=== PATIENT | female | born 1985 | race Caucasian/White ===

== ENCOUNTER 2017-03-01 15:42 | Inpatient (IN) | payer MEDICAID ==
--- NOTE | 2017-03-01 16:22 | Emergency Department Report ---
ED Altered Mental Status HPI - General Chief Complaint: Altered Mental Status Stated Complaint: SEMI RESPONSIVE Time Seen by Provider: 03/01/17 16:21 Source: EMS Mode of arrival: Stretcher Limitations: Altered Mental Status - History of Present Illness Initial Comments: 41-year-old female presents to the emergency department via EMS after being found unresponsive in a hotel room. No further history is able to be obtained from the patient due to her current clinical condition. EMS is also unable to provide any other history. MD Complaint: altered mental status -: unknown Severity: severe Consistency of Symptoms: constant Context: unknown ED Review of Systems ROS: Stated complaint: SEMI RESPONSIVE Other details as noted in HPI Comment: Unobtainable due to pts medical conditions ED Past Medical Hx - Past Medical History Previous Medical History?: Yes Hx Diabetes: Yes - Surgical History Past Surgical History?: No - Social History Smoking Status: Unknown if ever smoked ED Physical Exam - General Limitations: Altered Mental Status General appearance: in no apparent distress, lethargic - Head Head exam: Present: atraumatic, normocephalic - Eye Eye exam: Present: normal appearance, PERRL, EOMI - ENT ENT exam: Present: normal exam, normal orophraynx, mucous membranes dry - Neck Neck exam: Present: normal inspection, full ROM. Absent: tenderness - Respiratory Respiratory exam: Present: normal lung sounds bilaterally. Absent: respiratory distress - Cardiovascular Cardiovascular Exam: Present: normal rhythm, tachycardia, normal heart sounds - GI/Abdominal GI/Abdominal exam: Present: soft, normal bowel sounds. Absent: distended, tenderness - Extremities Exam Extremities exam: Present: normal inspection, full ROM. Absent: tenderness - Back Exam Back exam: Present: normal inspection, full ROM. Absent: tenderness - Neurological Exam Neurological exam: Present: altered. Absent: motor sensory deficit - Skin Skin exam: Present: warm, dry, intact ED Course Vital Signs 03/01/17 03/01/17 03/01/17 16:05 16:50 17:18 Temperature 91.8 F L Pulse Rate 112 H Respiratory 21 16 Rate Blood Pressure 123/76 [Left] O2 Sat by Pulse 100 100 Oximetry - Reevaluation(s) Reevaluation #1: 03/01/17 17:08 A family member has arrived and reports the patient has a history of "sugar diabetes". He states that the patient has been breathing heavily. It is unknown the time frame of symptom onset. - Lab Data Result diagrams: 03/01/17 16:44 03/01/17 16:44 Lab Results 03/01/17 03/01/17 03/01/17 Range/Units 16:20 16:44 16:44 WBC 41.2 H* (4.5-11.0) K/mm3 RBC 5.81 H (3.65-5.03) M/mm3 Hgb 16.6 H (10.1-14.3) gm/dl Hct 62.0 H* (30.3-42.9) % MCV 107 H (79-97) fl MCH 29 (28-32) pg MCHC 27 L (30-34) % RDW 15.7 H (13.2-15.2) % Plt Count 424 (140-440) K/mm3 Add Manual Diff Complete Total Counted 200 Seg Neuts % (Manual) 87.0 H (40.0-70.0) % Band Neutrophils % 0 % Lymphocytes % (Manual) 6.5 L (13.4-35.0) % Reactive Lymphs % (Man) 0 % Monocytes % (Manual) 5.5 (0.0-7.3) % Eosinophils % (Manual) 0 (0.0-4.3) % Basophils % (Manual) 0 (0.0-1.8) % Metamyelocytes % 0.5 % Myelocytes % 0.5 % Promyelocytes % 0 % Blast Cells % 0 % Nucleated RBC % Not Reportable Seg Neutrophils # Man 35.8 H (1.8-7.7) K/mm3 Band Neutrophils # 0.0 K/mm3 Lymphocytes # (Manual) 2.7 (1.2-5.4) K/mm3 Abs React Lymphs (Man) 0.0 K/mm3 Monocytes # (Manual) 2.3 H (0.0-0.8) K/mm3 Eosinophils # (Manual) 0.0 (0.0-0.4) K/mm3 Basophils # (Manual) 0.0 (0.0-0.1) K/mm3 Metamyelocytes # 0.2 K/mm3 Myelocytes # 0.2 K/mm3 Promyelocytes # 0.0 K/mm3 Blast Cells # 0.0 K/mm3 WBC Morphology Not Reportable Hypersegmented Neuts Not Reportable Hyposegmented Neuts Not Reportable Hypogranular Neuts Not Reportable Smudge Cells Not Reportable Toxic Granulation Not Reportable Toxic Vacuolation Not Reportable Dohle Bodies Not Reportable Pelger-Huet Anomaly Not Reportable Chad Rods Not Reportable Platelet Estimate Consistent w auto Clumped Platelets Not Reportable Plt Clumps, EDTA Not Reportable Large Platelets Few Giant Platelets Not Reportable Platelet Satelliting Not Reportable Plt Morphology Comment Not Reportable RBC Morphology Not Reportable Dimorphic RBCs Not Reportable Polychromasia Not Reportable Hypochromasia Not Reportable Poikilocytosis Few Anisocytosis 1+ Microcytosis Not Reportable Macrocytosis Not Reportable Spherocytes Not Reportable Pappenheimer Bodies Not Reportable Sickle Cells Not Reportable Target Cells Not Reportable Tear Drop Cells Not Reportable Ovalocytes Not Reportable Helmet Cells Not Reportable [place] Bodies Not Reportable [place] Rings Not Reportable [place] Cells Not Reportable Bite Cells Not Reportable Crenated Cell Not Reportable Elliptocytes Not Reportable Acanthocytes (Spur) Not Reportable Rouleaux Not Reportable Hemoglobin C Crystals Not Reportable Schistocytes Not Reportable Malaria parasites Not Reportable Enoc Bodies Not Reportable Hem Pathologist Commnt No PT 15.4 H (12.2-14.9) Sec. INR 1.16 H (0.87-1.13) APTT 31.8 (24.2-36.6) Sec. Sodium (137-145) mmol/L Potassium (3.6-5.0) mmol/L Chloride (98-107) mmol/L Carbon Dioxide (22-30) mmol/L Anion Gap mmol/L BUN (7-17) mg/dL Creatinine (0.7-1.2) mg/dL Estimated GFR ml/min BUN/Creatinine Ratio % Glucose (65-100) mg/dL POC Glucose > 500 H (70-105) Lactic Acid (0.7-2.0) mmol/L Calcium (8.4-10.2) mg/dL Phosphorus (2.5-4.5) mg/dL Magnesium (1.7-2.3) mg/dL Total Bilirubin (0.1-1.2) mg/dL AST (5-40) units/L ALT (7-56) units/L Alkaline Phosphatase (35-129) units/L Ammonia (25-60) umol/L Total Creatine Kinase (30-135) units/L Troponin T (0.00-0.029) ng/mL Total Protein (6.3-8.2) g/dL Albumin (3.9-5) g/dL Albumin/Globulin Ratio % TSH (0.270-4.200) mlU/mL Salicylates (2.8-20.0) mg/dL Urine Opiates Screen Urine Methadone Screen Acetaminophen (10.0-30.0) ug/mL Ur Barbiturates Screen Ur Phencyclidine Scrn U Benzodiazepines Scrn Urine Cocaine Screen U Marijuana (THC) Screen Plasma/Serum Alcohol (0-0.07) gm% 03/01/17 03/01/17 03/01/17 Range/Units 16:44 16:44 16:44 WBC (4.5-11.0) K/mm3 RBC (3.65-5.03) M/mm3 Hgb (10.1-14.3) gm/dl Hct (30.3-42.9) % MCV (79-97) fl MCH (28-32) pg MCHC (30-34) % RDW (13.2-15.2) % Plt Count (140-440) K/mm3 Add Manual Diff Total Counted Seg Neuts % (Manual) (40.0-70.0) % Band Neutrophils % % Lymphocytes % (Manual) (13.4-35.0) % Reactive Lymphs % (Man) % Monocytes % (Manual) (0.0-7.3) % Eosinophils % (Manual) (0.0-4.3) % Basophils % (Manual) (0.0-1.8) % Metamyelocytes % % Myelocytes % % Promyelocytes % % Blast Cells % % Nucleated RBC % Seg Neutrophils # Man (1.8-7.7) K/mm3 Band Neutrophils # K/mm3 Lymphocytes # (Manual) (1.2-5.4) K/mm3 Abs React Lymphs (Man) K/mm3 Monocytes # (Manual) (0.0-0.8) K/mm3 Eosinophils # (Manual) (0.0-0.4) K/mm3 Basophils # (Manual) (0.0-0.1) K/mm3 Metamyelocytes # K/mm3 Myelocytes # K/mm3 Promyelocytes # K/mm3 Blast Cells # K/mm3 WBC Morphology Hypersegmented Neuts Hyposegmented Neuts Hypogranular Neuts Smudge Cells Toxic Granulation Toxic Vacuolation Dohle Bodies Pelger-Huet Anomaly Chad Rods Platelet Estimate Clumped Platelets Plt Clumps, EDTA Large Platelets Giant Platelets Platelet Satelliting Plt Morphology Comment RBC Morphology Dimorphic RBCs Polychromasia Hypochromasia Poikilocytosis Anisocytosis Microcytosis Macrocytosis Spherocytes Pappenheimer Bodies Sickle Cells Target Cells Tear Drop Cells Ovalocytes Helmet Cells [place] Bodies [place] Rings [place] Cells Bite Cells Crenated Cell Elliptocytes Acanthocytes (Spur) Rouleaux Hemoglobin C Crystals Schistocytes Malaria parasites Enoc Bodies Hem Pathologist Commnt PT (12.2-14.9) Sec. INR (0.87-1.13) APTT (24.2-36.6) Sec. Sodium 124 L (137-145) mmol/L Potassium 5.7 H (3.6-5.0) mmol/L Chloride 79.2 L (98-107) mmol/L Carbon Dioxide < 2.0 L* (22-30) mmol/L Anion Gap 49 mmol/L BUN 49 H (7-17) mg/dL Creatinine 2.5 H (0.7-1.2) mg/dL Estimated GFR 21 ml/min BUN/Creatinine Ratio 19.60 % Glucose 1379 H* (65-100) mg/dL POC Glucose (70-105) Lactic Acid 2.60 H* (0.7-2.0) mmol/L Calcium 9.0 (8.4-10.2) mg/dL Phosphorus (2.5-4.5) mg/dL Magnesium (1.7-2.3) mg/dL Total Bilirubin 0.20 (0.1-1.2) mg/dL AST 14 (5-40) units/L ALT 10 (7-56) units/L Alkaline Phosphatase 199 H (35-129) units/L Ammonia 71.0 H (25-60) umol/L Total Creatine Kinase 47 (30-135) units/L Troponin T < 0.010 (0.00-0.029) ng/mL Total Protein 8.1 (6.3-8.2) g/dL Albumin 3.9 (3.9-5) g/dL Albumin/Globulin Ratio 0.9 % TSH (0.270-4.200) mlU/mL Salicylates (2.8-20.0) mg/dL Urine Opiates Screen Urine Methadone Screen Acetaminophen (10.0-30.0) ug/mL Ur Barbiturates Screen Ur Phencyclidine Scrn U Benzodiazepines Scrn Urine Cocaine Screen U Marijuana (THC) Screen Plasma/Serum Alcohol (0-0.07) gm% 03/01/17 03/01/17 03/01/17 Range/Units 16:44 16:44 16:44 WBC (4.5-11.0) K/mm3 RBC (3.65-5.03) M/mm3 Hgb (10.1-14.3) gm/dl Hct (30.3-42.9) % MCV (79-97) fl MCH (28-32) pg MCHC (30-34) % RDW (13.2-15.2) % Plt Count (140-440) K/mm3 Add Manual Diff Total Counted Seg Neuts % (Manual) (40.0-70.0) % Band Neutrophils % % Lymphocytes % (Manual) (13.4-35.0) % Reactive Lymphs % (Man) % Monocytes % (Manual) (0.0-7.3) % Eosinophils % (Manual) (0.0-4.3) % Basophils % (Manual) (0.0-1.8) % Metamyelocytes % % Myelocytes % % Promyelocytes % % Blast Cells % % Nucleated RBC % Seg Neutrophils # Man (1.8-7.7) K/mm3 Band Neutrophils # K/mm3 Lymphocytes # (Manual) (1.2-5.4) K/mm3 Abs React Lymphs (Man) K/mm3 Monocytes # (Manual) (0.0-0.8) K/mm3 Eosinophils # (Manual) (0.0-0.4) K/mm3 Basophils # (Manual) (0.0-0.1) K/mm3 Metamyelocytes # K/mm3 Myelocytes # K/mm3 Promyelocytes # K/mm3 Blast Cells # K/mm3 WBC Morphology Hypersegmented Neuts Hyposegmented Neuts Hypogranular Neuts Smudge Cells Toxic Granulation Toxic Vacuolation Dohle Bodies Pelger-Huet Anomaly Chad Rods Platelet Estimate Clumped Platelets Plt Clumps, EDTA Large Platelets Giant Platelets Platelet Satelliting Plt Morphology Comment RBC Morphology Dimorphic RBCs Polychromasia Hypochromasia Poikilocytosis Anisocytosis Microcytosis Macrocytosis Spherocytes Pappenheimer Bodies Sickle Cells Target Cells Tear Drop Cells Ovalocytes Helmet Cells [place]rab[place] Bodies [place] Rings [place] Cells Bite Cells Crenated Cell Elliptocytes Acanthocytes (Spur) Rouleaux Hemoglobin C Crystals Schistocytes Malaria parasites Enoc Bodies Hem Pathologist Commnt PT (12.2-14.9) Sec. INR (0.87-1.13) APTT (24.2-36.6) Sec. Sodium (137-145) mmol/L Potassium (3.6-5.0) mmol/L Chloride (98-107) mmol/L Carbon Dioxide (22-30) mmol/L Anion Gap mmol/L BUN (7-17) mg/dL Creatinine (0.7-1.2) mg/dL Estimated GFR ml/min BUN/Creatinine Ratio % Glucose (65-100) mg/dL POC Glucose (70-105) Lactic Acid (0.7-2.0) mmol/L Calcium (8.4-10.2) mg/dL Phosphorus (2.5-4.5) mg/dL Magnesium (1.7-2.3) mg/dL Total Bilirubin (0.1-1.2) mg/dL AST (5-40) units/L ALT (7-56) units/L Alkaline Phosphatase (35-129) units/L Ammonia (25-60) umol/L Total Creatine Kinase (30-135) units/L Troponin T (0.00-0.029) ng/mL Total Protein (6.3-8.2) g/dL Albumin (3.9-5) g/dL Albumin/Globulin Ratio % TSH 1.510 (0.270-4.200) mlU/mL Salicylates 0.6 L (2.8-20.0) mg/dL Urine Opiates Screen Urine Methadone Screen Acetaminophen < 15.0 (10.0-30.0) ug/mL Ur Barbiturates Screen Ur Phencyclidine Scrn U Benzodiazepines Scrn Urine Cocaine Screen U Marijuana (THC) Screen Plasma/Serum Alcohol (0-0.07) gm% 07/10/17 07/10/17 07/10/17 Range/Units 16:44 16:44 17:18 WBC (4.5-11.0) K/mm3 RBC (3.65-5.03) M/mm3 Hgb (10.1-14.3) gm/dl Hct (30.3-42.9) % MCV (79-97) fl MCH (28-32) pg MCHC (30-34) % RDW (13.2-15.2) % Plt Count (140-440) K/mm3 Add Manual Diff Total Counted Seg Neuts % (Manual) (40.0-70.0) % Band Neutrophils % % Lymphocytes % (Manual) (13.4-35.0) % Reactive Lymphs % (Man) % Monocytes % (Manual) (0.0-7.3) % Eosinophils % (Manual) (0.0-4.3) % Basophils % (Manual) (0.0-1.8) % Metamyelocytes % % Myelocytes % % Promyelocytes % % Blast Cells % % Nucleated RBC % Seg Neutrophils # Man (1.8-7.7) K/mm3 Band Neutrophils # K/mm3 Lymphocytes # (Manual) (1.2-5.4) K/mm3 Abs React Lymphs (Man) K/mm3 Monocytes # (Manual) (0.0-0.8) K/mm3 Eosinophils # (Manual) (0.0-0.4) K/mm3 Basophils # (Manual) (0.0-0.1) K/mm3 Metamyelocytes # K/mm3 Myelocytes # K/mm3 Promyelocytes # K/mm3 Blast Cells # K/mm3 WBC Morphology Hypersegmented Neuts Hyposegmented Neuts Hypogranular Neuts Smudge Cells Toxic Granulation Toxic Vacuolation Dohle Bodies Pelger-Huet Anomaly Chad Rods Platelet Estimate Clumped Platelets Plt Clumps, EDTA Large Platelets Giant Platelets Platelet Satelliting Plt Morphology Comment RBC Morphology Dimorphic RBCs Polychromasia Hypochromasia Poikilocytosis Anisocytosis Microcytosis Macrocytosis Spherocytes Pappenheimer Bodies Sickle Cells Target Cells Tear Drop Cells Ovalocytes Helmet Cells Ch[place]rab[place] Bodies [place] Rings Robinson Cells Bite Cells Crenated Cell Elliptocytes Acanthocytes (Spur) Rouleaux Hemoglobin C Crystals Schistocytes Malaria parasites Enoc Bodies Hem Pathologist Commnt PT (12.2-14.9) Sec. INR (0.87-1.13) APTT (24.2-36.6) Sec. Sodium (137-145) mmol/L Potassium (3.6-5.0) mmol/L Chloride (98-107) mmol/L Carbon Dioxide (22-30) mmol/L Anion Gap mmol/L BUN (7-17) mg/dL Creatinine (0.7-1.2) mg/dL Estimated GFR ml/min BUN/Creatinine Ratio % Glucose (65-100) mg/dL POC Glucose (70-105) Lactic Acid (0.7-2.0) mmol/L Calcium (8.4-10.2) mg/dL Phosphorus 11.90 H (2.5-4.5) mg/dL Magnesium 3.40 H (1.7-2.3) mg/dL Total Bilirubin (0.1-1.2) mg/dL AST (5-40) units/L ALT (7-56) units/L Alkaline Phosphatase (35-129) units/L Ammonia (25-60) umol/L Total Creatine Kinase (30-135) units/L Troponin T (0.00-0.029) ng/mL Total Protein (6.3-8.2) g/dL Albumin (3.9-5) g/dL Albumin/Globulin Ratio % TSH (0.270-4.200) mlU/mL Salicylates (2.8-20.0) mg/dL Urine Opiates Screen Presumptive negative Urine Methadone Screen Presumptive negative Acetaminophen (10.0-30.0) ug/mL Ur Barbiturates Screen Presumptive negative Ur Phencyclidine Scrn Presumptive negative U Benzodiazepines Scrn Presumptive negative Urine Cocaine Screen Presumptive negative U Marijuana (THC) Screen Presumptive negative Plasma/Serum Alcohol < 0.01 (0-0.07) gm% - EKG Data -: EKG Interpreted by Nh EKG shows normal: sinus rhythm, intervals Rate: tachycardia When compared to previous EKG there are: previous EKG unavailable Interpretation: other (left axis deviation, peaked T waves) - Medical Decision Making Laboratory results reviewed. Patient appears to be in DKA with acute renal failure and dehydration. Giving additional IV fluids. Starting insulin drip. Patient is to be admitted by the hospitalist. - Differential Diagnosis DKA, ICH, dehydration, electrolyte anabiotic Critical Care Time: Yes Critical care time in (mins) excluding proc time.: 40 Critical care attestation.: If time is entered above; I have spent that time in minutes in the direct care of this critically ill patient, excluding procedure time. Critical Care Time: The high probability of a clinically significant, sudden or life threatening deterioration of the metabolic and renal system(s) required my full and direct attention, intervention and personal management. The aggregate critical care time was 40 minutes. This time is in addition to time spent performing reported procedures but includes the following: [x] Data Review and interpretation [x] Patient assessment and monitoring of vital signs [x] Documentation [x] Medication orders and management ED Disposition Clinical Impression: DKA (diabetic ketoacidosis) Qualifiers: Diabetes mellitus type: type 2 Diabetes mellitus complication detail: with coma Qualified Code(s): E13.11 - Other specified diabetes mellitus with ketoacidosis with coma Acute renal failure Qualifiers: Acute renal failure type: with acute tubular necrosis Qualified Code(s): N17.0 - Acute kidney failure with tubular necrosis Disposition: OP ADMIT IP TO THIS HOSP Is pt being admited?: Yes Condition: Stable Instructions: Diabetic Ketoacidosis (ED) Referrals: PRIMARY CARE, [Primary Care Provider] - 3-5 Days Time of Disposition: 18:01
[2017-03-01] MEDS ORDERED: NACL 0.9% 1000 ML 1,000 ML IV ONE (16:26)
[2017-03-01 17:04] LABS: Mean Corpuscular HGB Conc 27 % (30-34); Mean Corpuscular Hemoglobin 29 pg (28-32); Mean Corpuscular Volume 107 fl (79-97); Platelet Count 424 K/mm3 (140-440); Red Blood Count 5.81 M/mm3 (3.65-5.03); Red Cell Distribution Width 15.7 % (13.2-15.2)
[2017-03-01 17:11] LABS: White Blood Count 41.2 K/mm3 (4.5-11.0)
[2017-03-01 17:12] LABS: Hemoglobin 16.6 gm/dl (10.1-14.3)
[2017-03-01] MEDS ORDERED: MILK OF MAGNESIA PO PRN (17:16)
[2017-03-01] MEDS ORDERED: DULCOLAX PR PRN (17:16)
[2017-03-01] MEDS ORDERED: NACL 0.9% 1000 ML IV ONE (17:16)
[2017-03-01] MEDS ORDERED: ALUM-MAG HYDROX-SIMETH 200-200-20MG/5ML PO PRN (17:16)
[2017-03-01] MEDS ORDERED: DUONEB *Not for PRN Use IH (17:16)
[2017-03-01] MEDS ORDERED: VANCOMYCIN VIAL IV ONE (17:16)
[2017-03-01] MEDS ORDERED: D50W (25GM) IV PRN ×2 (17:16→19:54)
--- NOTE | 2017-03-01 17:16 | History and Physical Report ---
History of Present Illness Date of admission: -: unknown Severity: severe Consistency of Symptoms: constant Context: unknown ED Review of Systems ROS: Stated complaint: SEMI RESPONSIVE Other details as noted in HPI Comment: Unobtainable due to pts medical conditions ED Past Medical Hx - Past Medical History Previous Medical History?: Yes Hx Diabetes: Yes - Surgical History Past Surgical History?: No - Social History Smoking Status: Unknown if ever smoked Chief complaint: Found down, and unresponsive History of present illness: 32 YO Female with DM presents to ED for evaluation. Pt unable to provide history. Pt confused and lethargic on exam. Pt family at bedside and provide history. Pt found down and unresponsive in a hotel room. EMS notified No further history is able to be obtained from the patient due to her current clinical condition. EMS is also unable to provide any other history. Pt seen and evaluated in ED, Pt found to be encephalopathic, but is able to protect her airway. Past History Past Medical History: diabetes Past Surgical History: No surgical history, Other (reviewed) Social history: single. denies: smoking, alcohol abuse, prescription drug abuse , IV drug use Family history: hypertension Medications and Allergies Allergies Allergy/AdvReac Type Severity Reaction Status Date / Time No Known Allergies Allergy Unverified 03/01/17 18:17 Active Meds: Active Medications Sodium Chloride (Nacl 0.9% 1000 Ml) 1,000 mls @ 999 mls/hr IV BOLUS ONE Stop: 03/01/17 17:26 Review of Systems ROS unobtainable: due to mental status Exam - Constitutional Vitals: Temp Pulse Resp BP Pulse Ox 112 H 16 123/76 100 03/01/17 16:05 03/01/17 16:50 03/01/17 16:05 03/01/17 16:50 General appearance: Present: severe distress - EENT Eyes: Present: PERRL ENT: hearing intact, clear oral mucosa - Neck Neck: Present: supple, normal ROM - Respiratory Respiratory effort: labored Respiratory: bilateral: diminished - Cardiovascular Heart Sounds: Present: S1 & S2. Absent: rub, click - Extremities Extremities: pulses symmetrical, No edema Peripheral Pulses: within normal limits - Abdominal General gastrointestinal: Present: soft, non-tender, non-distended, normal bowel sounds Female genitourinary: Present: normal - Integumentary Integumentary: Present: clear, dry, clammy, pale, decreased turgor - Musculoskeletal Musculoskeletal: generalized weakness - Psychiatric Psychiatric: no intact judgment & insight, no memory intact - Neurologic Neurologic: CNII-XII intact, moves all extremities, no gait normal Results - Labs CBC & Chem 7: 03/01/17 16:44 03/01/17 20:52 Labs: Abnormal lab results 03/01/17 03/01/17 03/01/17 Range/Units 16:20 16:44 16:44 WBC 41.2 H* (4.5-11.0) K/mm3 RBC 5.81 H (3.65-5.03) M/mm3 Hgb 16.6 H (10.1-14.3) gm/dl Hct 62.0 H* (30.3-42.9) % MCV 107 H (79-97) fl MCHC 27 L (30-34) % RDW 15.7 H (13.2-15.2) % POC Glucose > 500 H (70-105) Lactic Acid 2.60 H* (0.7-2.0) mmol/L Ammonia (25-60) umol/L 03/01/17 Range/Units 16:44 WBC (4.5-11.0) K/mm3 RBC (3.65-5.03) M/mm3 Hgb (10.1-14.3) gm/dl Hct (30.3-42.9) % MCV (79-97) fl MCHC (30-34) % RDW (13.2-15.2) % POC Glucose (70-105) Lactic Acid (0.7-2.0) mmol/L Ammonia 71.0 H (25-60) umol/L Assessment and Plan - Patient Problems (1) Sepsis Current Visit: Yes Status: Acute Qualifiers: Sepsis type: Streptococcus group B Qualified Code(s): A40.1 - Sepsis due to streptococcus, group B Plan to address problem: IV abx, IVF, supportive care, monitor uop q shift, blood cultures, serial lactic acid levels, pressor support as clinically indicated, The high probability of a clinically significant, sudden or life threatening deterioration of the [cardiac, endocrine, renal] system(s) required my full and direct attention, intervention and personal management. The aggregate critical care time was [70] minutes. This time is in addition to time spent performing reported procedures but includes the following: [x] Data Review and interpretation [x] Patient assessment and monitoring of vital signs [x] Documentation [x] Medication orders and management (2) Toxic encephalopathy Current Visit: Yes Status: Acute Plan to address problem: IVF, supportive care, CT head (3) Acute renal failure Current Visit: Yes Status: Acute Qualifiers: Acute renal failure type: with acute tubular necrosis Qualified Code(s): N17.0 - Acute kidney failure with tubular necrosis Plan to address problem: IVF, supportive care, monitor uop q shift (4) DKA (diabetic ketoacidosis) Current Visit: Yes Status: Acute Qualifiers: Diabetes mellitus type: type 2 Diabetes mellitus complication detail: with coma Qualified Code(s): E13.11 - Other specified diabetes mellitus with ketoacidosis with coma Plan to address problem: Insulin drip, DKA protocol, serial bmp, monitor anion gap (5) DVT prophylaxis Current Visit: Yes Status: Acute
[2017-03-01 17:19] LABS: INR 1.16 (0.87-1.13); Partial Thromboplastin Time 31.8 Sec. (24.2-36.6)
[2017-03-01 17:20] LABS: Urine Drugs of Abuse Note Disclamer
[2017-03-01 17:31] LABS: Alanine Aminotransferase 10 units/L (7-56); Albumin 3.9 g/dL (3.9-5); Albumin/Globulin Ratio 0.9 %; Alkaline Phosphatase 199 units/L (35-129); Blood Urea Nitrogen 49 mg/dL (7-17); Chloride 79.2 mmol/L (98-107); Creatine Kinase 47 units/L (30-135); Potassium 5.7 mmol/L (3.6-5.0); Sodium 124 mmol/L (137-145); Total Protein 8.1 g/dL (6.3-8.2)
[2017-03-01 17:43] LABS: Anion Gap 49 mmol/L; Carbon Dioxide < 2.0 mmol/L (22-30); Glucose 1379 mg/dL (65-100)
[2017-03-01 17:49] LABS: Basophils % (Manual) 0 % (0.0-1.8); Blastocytes % (Manual) 0 %; Eosinophils % (Manual) 0 % (0.0-4.3)
[2017-03-01 17:51] LABS: Anisocytosis 1+; Diff Status Complete; Large Platelets Few; Platelet Estimate Consistent w Auto; Poikilocytosis Few
[2017-03-01] MEDS: NovoLIN R 100 UNITS in NACL 0.9% 99 ML IV SCH (17:56)
[2017-03-01 17:58] LABS: Magnesium 3.4 mg/dL (1.7-2.3); Phosphorous 11.9 mg/dL (2.5-4.5)
[2017-03-01 17:59] LABS: Bacteria,Urine 1+ /HPF (Negative); Bilirubin,Urine NEG (Negative); Blood,Urine SM (Negative); Ketones,Urine 80 mg/dL (Negative); Leukocyte Esterase,Urine NEG (Negative); Mucus,Urine FEW /HPF; Nitrite,Urine NEG (Negative); Urobilinogen,Urine < 2.0 mg/dL (<2.0)
[2017-03-01] MEDS ORDERED: VANCOMYCIN PHARMACY TO DOSE IV SCH (18:00)
[2017-03-01] MEDS ORDERED: VANCOMYCIN 1,250 MG in NACL 0.9% 250ML 250 ML IV ONE (18:00)
--- NOTE | 2017-03-01 18:18 | Admit Criteria Form ---
Admission Criteria Documentation: DIABETES Clinical Indications for Admission to Inpatient Care (Place 'X' for any and all applicable criteria): Admission is indicated by presence of ALL (if I & II) or ANY ONE (if III or IV) of the following (1)(2)(3)(4): [ X]I. Diabetes is uncontrolled as indicated by ANY ONE of the following: [X ]a) Diabetic ketoacidosis as indicated by ALL of the following (8): [ X]i) Hyperglycemia (eg, plasma glucose greater than 200 mg /dL (11.1 mmol/L)) [X ]ii) Acidosis (eg, arterial pH less than 7.30, serum bicarbonate level less than 15 mEq/L (mmol/L)) [X ]iii) Moderate ketonuria or ketonemia [ ]b) Hyperglycemic hyperosmolar state as indicated by ALL of the following(9)(10): [ ]i) Neurologic dysfunction (eg, stupor, coma, hemiparesis , seizure)(13) [ ]ii) Plasma glucose greater than 600 mg/dL (33.3 mmol/L) [ ]iii) Serum osmolality greater than 320 mOsm/kg (mmol/kg) [ ]c) Severe signs or symptoms secondary to hyperglycemia indicated by ANY ONE of the following: [ ]i) Altered mental status(10) [ ]ii) Significant hypovolemia or dehydration [ ]iii) Intractable nausea or vomiting [ ]iv) Unexplained fever or severe infection [ ]v) Severe electrolyte abnormality (eg, hypokalemia, hyperkalemia, hypernatremia) [ X]II. Management at other levels of care (Also use Diabetes: Observation Care as appropriate) is not feasible because of ANY ONE of the following: [X ]a) Condition was not adequately corrected with treatment at other levels of care. [ ]b) Treatment at other levels of care is not appropriate because of condition severity (eg, hyperosmolar coma). [ ]III. Contraindications and/or Inappropriate clinical situations for Observational Care in patients with Diabetes, when ANY ONE of the following is required: [ ]a) Patient require specific diagnostic workup or therapeutic intervention 22 [ ]b) Patient with abnormal vital signs or altered mental status 23 [ ]IV. General contraindications and/or Inappropriate clinical situations for Observational Care in patients with Diabetes, when ANY ONE of the following is required: [ ]a) Prediction of prolongation of LOS based on ANY ONE of the following may be considered as a contraindication for observational care 2, 3, 4, 5, 6, 7, 8, 9, 10, 11 [ ]i) Age > 65 yrs. [ ]ii) Patient arriving by ambulance [ ]iii) Patient with high acuity [ ]iv) Patient requiring vital sign monitoring [ ]v) Patient on IV medication [ ]b) Systolic blood pressures 180mmHg 3,12 [ ]c) Patient with altered mental status including delirium and other alteration of consciousness, (3) [ ]d) Patient whose discharge disposition will be to a detention home or rehabilitation home should not be managed in Emergency Department Observation Unit. CMS rule requires 3 days hospital stay before such placement.3,13 [ ]e) Patient with failure to thrive due to broad array of etiologies 3,16,17 [ ]f) Inability to ambulate 3,14 Extended stay beyond goal length of stay may be needed for(3)(20): [ ]a) Treatment of precipitating causes [ ]b) Development of hypoglycemia [ ]c) Complications of treatment [ ]d) Complications of decompensated diabetes (eg, acute gastric dilatation, persistent metabolic or neurologic derangement) [ ]e) Active Comorbidities [ ]f) Older patients( 65 years or older) The original [employer] content created by [employer] has been revised. The portions of the content which have been revised are identified through the use of italic text or in bold,and [facility] has neither reviewed nor approved the modified material. All other unmodified content is copyright [employer]. Please see references footnoted in the original [facility] edition 2016 Admission Criteria Met: Yes
[2017-03-01] MEDS: ZOSYN/NS 2.25 GM/50ML 2.25 GM/50 ML BAG IV SCH ×2 (19:08→23:43)
[2017-03-01] MEDS ORDERED: PROVENTIL IH PRN (19:56)
[2017-03-01] MEDS ORDERED: NACL 0.9% 1000 ML 1,000 ML IV SCH (20:00)
[2017-03-01 20:40] LABS: BUN/Creatinine Ratio 20.9; Calcium 8.6 mg/dL (8.4-10.2); Chloride 96.3 mmol/L (98-107); Potassium 5.2 mmol/L (3.6-5.0)
--- NOTE | 2017-03-01 21:19 | Cat Scan Report ---
FINAL REPORT PROCEDURE: CT HEAD/BRAIN WO CON TECHNIQUE: Computerized tomography of the head was performed without contrast material. HISTORY: Altered Mental Status COMPARISON: No prior studies are available for comparison. FINDINGS: Skull and scalp: Normal. Paranasal sinuses: Normal. Ventricles and subarachnoid spaces: Normal. Cerebrum: No evidence of hemorrhage, acute infarction or mass . Cerebellum and brainstem: No evidence of hemorrhage, acute infarction or mass. Vasculature: Normal. Comments: None. IMPRESSION: Normal Examination
[2017-03-01 21:38] LABS: Calcium 7.8 mg/dL (8.4-10.2); Chloride 99.8 mmol/L (98-107); Potassium 4.6 mmol/L (3.6-5.0)
[2017-03-01] MEDS ORDERED: ZOSYN/NS 4.5GM/100ML 4.5 GM/100 ML VIAL IV SCH (22:00)
[2017-03-01 23:21] LABS: ISTAT Base Excess -23; ISTAT HCO3 6.4; ISTAT PCO2 19.6 (35-45); ISTAT PO2 162 (80-105); ISTAT SO2 99; ISTAT TCO2 7
[2017-03-01] MEDS: NACL 0.9% 1000 ML 1,000 ML IV SCH (23:43)
[2017-03-02 00:15] LABS: BUN/Creatinine Ratio 32.22; Blood Urea Nitrogen 29 mg/dL (7-17); Chloride 126.3 mmol/L (98-107); Glucose 359 mg/dL (65-100); Sodium 149 mmol/L (137-145)
[2017-03-02 00:20] LABS: Calcium 3.6 mg/dL (8.4-10.2); Carbon Dioxide 5 mmol/L (22-30)
[2017-03-02 00:22] LABS: Anion Gap 20 mmol/L
[2017-03-02 00:23] LABS: Potassium 2.2 mmol/L (3.6-5.0)
[2017-03-02] MEDS: KCL 10MEQ/100ML 10 MEQ/100 ML BAG IV SCH ×4 (00:45→03:39)
[2017-03-02] MEDS: NACL 0.9% 1000 ML 1,000 ML IV SCH ×2 (04:58→09:34)
[2017-03-02] MEDS: NovoLIN R 100 UNITS in NACL 0.9% 99 ML IV SCH ×2 (05:00→22:08)
[2017-03-02 05:01] LABS: BUN/Creatinine Ratio 25.29; Calcium 8.4 mg/dL (8.4-10.2)
[2017-03-02] MEDS: ZOSYN/NS 2.25 GM/50ML 2.25 GM/50 ML BAG IV SCH ×3 (05:02→17:31)
[2017-03-02 05:34] LABS: Potassium 4.8 mmol/L (3.6-5.0)
[2017-03-02] MEDS: D5W/0.45% NACL/KCL 20 MEQ 20 MEQ/1,000 ML BAG IV SCH ×3 (06:49→22:22)
--- NOTE | 2017-03-02 07:54 | XRay Report ---
AP CHEST: HISTORY: Altered mental status AP view of the chest demonstrates a normal mediastinal and cardiac contour with clear lungs. There is moderate dextroscoliosis of the thoracolumbar spine. No acute bony abnormality. IMPRESSION: No acute cardiopulmonary process detected.
--- NOTE | 2017-03-02 08:41 | Progress Note ---
Assessment and Plan Assessment and plan: --Diabetic ketoacidosis On DKA protocol, insulin drip, but sugars reasonable levels, anion gap trending down, and aggressive IV hydration However patient is not taking up response to only deep stimuli Closely monitor, and she is able to take oral nutrition, and DC insulin drip and start long-acting insulin Hemoglobin A1c is 13 Metabolic encephalopathy, neuro checks, supportive care --Acute renal failure, vasomotor nephropathy, feeding azotemia Improving, continue IV hydration, closely monitor renal function, avoid nephrotoxic medications -- amphetamine abuse; Urine toxicology positive , supportive care --Lactic acidosis; evaluation for sepsis Empiric antibiotics, follow cultures, supportive care --Hypokalemia; closely monitor electrolytes --Leukocytosis; rule out sepsis, empiric antibiotics, follow cultures Hypoxia secondary to stress and severe dehydration --Severe acidosis; secondary to DKA, replacement therapy, supportive care --Hyperammonemia, hepatic encephalopathy, closely monitor, lactulose as needed, LFTs within normal limits --DVT prophylaxis; Lovenox Closely monitor the patient and adjust management as needed I called patient's father is discussed patient's condition and treatment plan, try to get more medical history, however has patient does not live with him and he didn't have much information Plan of care discussed with the patient's father, patient's nurse Critical care time 35 minutes History Interval history: Patient seen and evaluated in ICU this morning medical records reviewed Dictated but diabetic ketoacidosis, altered level of consciousness On insulin drip per protocol The patient responds only to deep stimuli. Mild distress Vital Signs reviewed Hospitalist Physical - Constitutional Vitals: Temp Pulse Resp BP Pulse Ox 97.9 F 128 H 13 131/89 97 03/02/17 07:57 03/02/17 07:00 03/02/17 07:00 03/02/17 07:00 03/02/17 07:00 General appearance: Present: mild distress, cachectic, other (dehydrated, responds to deep stimuli) - EENT Eyes: Present: PERRL, EOM intact - Neck Neck: Present: supple Results - Labs CBC & Chem 7: 03/02/17 16:36 03/02/17 16:36 Labs: Laboratory Last Values WBC 41.2 K/mm3 (4.5-11.0) H* 03/01/17 16:44 RBC 5.81 M/mm3 (3.65-5.03) H 03/01/17 16:44 Hgb 16.6 gm/dl (10.1-14.3) H 03/01/17 16:44 Hct 62.0 % (30.3-42.9) H* 03/01/17 16:44 MCV 107 fl (79-97) H 03/01/17 16:44 MCH 29 pg (28-32) 03/01/17 16:44 MCHC 27 % (30-34) L 03/01/17 16:44 RDW 15.7 % (13.2-15.2) H 03/01/17 16:44 Plt Count 424 K/mm3 (140-440) 03/01/17 16:44 Add Manual Diff Complete 03/01/17 16:44 Total Counted 200 03/01/17 16:44 Seg Neuts % (Manual) 87.0 % (40.0-70.0) H 03/01/17 16:44 Band Neutrophils % 0 % 03/01/17 16:44 Lymphocytes % (Manual) 6.5 % (13.4-35.0) L 03/01/17 16:44 Reactive Lymphs % (Man) 0 % 03/01/17 16:44 Monocytes % (Manual) 5.5 % (0.0-7.3) 03/01/17 16:44 Eosinophils % (Manual) 0 % (0.0-4.3) 03/01/17 16:44 Basophils % (Manual) 0 % (0.0-1.8) 03/01/17 16:44 Metamyelocytes % 0.5 % 03/01/17 16:44 Myelocytes % 0.5 % 03/01/17 16:44 Promyelocytes % 0 % 03/01/17 16:44 Blast Cells % 0 % 03/01/17 16:44 Nucleated RBC % Not Reportable 03/01/17 16:44 Seg Neutrophils # Man 35.8 K/mm3 (1.8-7.7) H 03/01/17 16:44 Band Neutrophils # 0.0 K/mm3 03/01/17 16:44 Lymphocytes # (Manual) 2.7 K/mm3 (1.2-5.4) 03/01/17 16:44 Abs React Lymphs (Man) 0.0 K/mm3 03/01/17 16:44 Monocytes # (Manual) 2.3 K/mm3 (0.0-0.8) H 03/01/17 16:44 Eosinophils # (Manual) 0.0 K/mm3 (0.0-0.4) 03/01/17 16:44 Basophils # (Manual) 0.0 K/mm3 (0.0-0.1) 03/01/17 16:44 Metamyelocytes # 0.2 K/mm3 03/01/17 16:44 Myelocytes # 0.2 K/mm3 03/01/17 16:44 Promyelocytes # 0.0 K/mm3 03/01/17 16:44 Blast Cells # 0.0 K/mm3 03/01/17 16:44 WBC Morphology Not Reportable 03/01/17 16:44 Hypersegmented Neuts Not Reportable 03/01/17 16:44 Hyposegmented Neuts Not Reportable 03/01/17 16:44 Hypogranular Neuts Not Reportable 03/01/17 16:44 Smudge Cells Not Reportable 03/01/17 16:44 Toxic Granulation Not Reportable 03/01/17 16:44 Toxic Vacuolation Not Reportable 03/01/17 16:44 Dohle Bodies Not Reportable 03/01/17 16:44 Pelger-Huet Anomaly Not Reportable 03/01/17 16:44 Chad Rods Not Reportable 03/01/17 16:44 Platelet Estimate Consistent w auto 03/01/17 16:44 Clumped Platelets Not Reportable 03/01/17 16:44 Plt Clumps, EDTA Not Reportable 03/01/17 16:44 Large Platelets Few 03/01/17 16:44 Giant Platelets Not Reportable 03/01/17 16:44 Platelet Satelliting Not Reportable 03/01/17 16:44 Plt Morphology Comment Not Reportable 03/01/17 16:44 RBC Morphology Not Reportable 03/01/17 16:44 Dimorphic RBCs Not Reportable 03/01/17 16:44 Polychromasia Not Reportable 03/01/17 16:44 Hypochromasia Not Reportable 03/01/17 16:44 Poikilocytosis Few 03/01/17 16:44 Anisocytosis 1+ 03/01/17 16:44 Microcytosis Not Reportable 03/01/17 16:44 Macrocytosis Not Reportable 03/01/17 16:44 Spherocytes Not Reportable 03/01/17 16:44 Pappenheimer Bodies Not Reportable 03/01/17 16:44 Sickle Cells Not Reportable 03/01/17 16:44 Target Cells Not Reportable 03/01/17 16:44 Tear Drop Cells Not Reportable 03/01/17 16:44 Ovalocytes Not Reportable 03/01/17 16:44 Helmet Cells Not Reportable 03/01/17 16:44 Chakraborty-Gautier Bodies Not Reportable 03/01/17 16:44 [place] Rings Not Reportable 03/01/17 16:44 Monica Cells Not Reportable 03/01/17 16:44 Bite Cells Not Reportable 03/01/17 16:44 Crenated Cell Not Reportable 03/01/17 16:44 Elliptocytes Not Reportable 03/01/17 16:44 Acanthocytes (Spur) Not Reportable 03/01/17 16:44 Rouleaux Not Reportable 03/01/17 16:44 Hemoglobin C Crystals Not Reportable 03/01/17 16:44 Schistocytes Not Reportable 03/01/17 16:44 Malaria parasites Not Reportable 03/01/17 16:44 Enoc Bodies Not Reportable 03/01/17 16:44 Hem Pathologist Commnt No 03/01/17 16:44 PT 15.4 Sec. (12.2-14.9) H 03/01/17 16:44 INR 1.16 (0.87-1.13) H 03/01/17 16:44 APTT 31.8 Sec. (24.2-36.6) 03/01/17 16:44 POC ABG pH 7.120 (7.35-7.45) L 03/01/17 23:05 POC ABG pCO2 19.6 (35-45) L 03/01/17 23:05 POC ABG pO2 162 (80-105) H 03/01/17 23:05 POC ABG HCO3 6.4 03/01/17 23:05 POC ABG Total CO2 7 03/01/17 23:05 POC ABG O2 Sat 99 03/01/17 23:05 POC ABG Base Excess -23 03/01/17 23:05 FiO2 32 % 03/01/17 23:05 Sodium 144 mmol/L (137-145) 03/02/17 03:17 Potassium 4.8 mmol/L (3.6-5.0) D 03/02/17 03:17 Chloride 112.0 mmol/L (98-107) H 03/02/17 03:17 Carbon Dioxide 10 mmol/L (22-30) L 03/02/17 03:17 Anion Gap 27 mmol/L 03/02/17 03:17 BUN 43 mg/dL (7-17) H 03/02/17 03:17 Creatinine 1.7 mg/dL (0.7-1.2) H D 03/02/17 03:17 Estimated GFR 35 ml/min 03/02/17 03:17 BUN/Creatinine Ratio 25.29 % 03/02/17 03:17 Glucose 339 mg/dL (65-100) H 03/02/17 03:17 POC Glucose 219 (70-105) H 03/02/17 07:47 Hemoglobin A1c 13.0 % (4-6) H 03/01/17 16:44 Lactic Acid 3.00 mmol/L (0.7-2.0) H* 03/01/17 18:40 Calcium 8.4 mg/dL (8.4-10.2) D 03/02/17 03:17 Phosphorus 11.90 mg/dL (2.5-4.5) H 03/01/17 16:44 Magnesium 3.40 mg/dL (1.7-2.3) H 03/01/17 16:44 Total Bilirubin 0.20 mg/dL (0.1-1.2) 03/01/17 16:44 AST 14 units/L (5-40) 03/01/17 16:44 ALT 10 units/L (7-56) 03/01/17 16:44 Alkaline Phosphatase 199 units/L (35-129) H 03/01/17 16:44 Ammonia 71.0 umol/L (25-60) H 03/01/17 16:44 Lactate Dehydrogenase 263 units/L (91-180) H 03/01/17 16:44 Total Creatine Kinase 47 units/L (30-135) 03/01/17 16:44 Troponin T < 0.010 ng/mL (0.00-0.029) 03/01/17 16:44 Total Protein 8.1 g/dL (6.3-8.2) 03/01/17 16:44 Albumin 3.9 g/dL (3.9-5) 03/01/17 16:44 Albumin/Globulin Ratio 0.9 % 03/01/17 16:44 TSH 1.510 mlU/mL (0.270-4.200) 03/01/17 16:44 Urine Color Yellow (Yellow) 03/01/17 17:18 Urine Turbidity Clear (Clear) 03/01/17 17:18 Urine pH 5.0 (5.0-7.0) 03/01/17 17:18 Ur Specific [place] 1.023 (1.003-1.030) 03/01/17 17:18 Urine Protein 100 mg/dl mg/dL (Negative) 03/01/17 17:18 Urine Glucose (UA) >=500 mg/dL (Negative) 03/01/17 17: Urine Ketones 80 mg/dL (Negative) 03/01/17 17:18 Urine Blood Sm (Negative) 03/01/17 17:18 Urine Nitrite Neg (Negative) 03/01/17 17:18 Urine Bilirubin Neg (Negative) 03/01/17 17: Urine Urobilinogen < 2.0 mg/dL (<2.0) 03/01/17 17:18 Ur Leukocyte Esterase Neg (Negative) 03/01/17 17:18 Urine WBC (Auto) 1.0 /HPF (0.0-6.0) 03/01/17 17:18 Urine RBC (Auto) 1.0 /HPF (0.0-6.0) 03/01/17 17:18 Urine Bacteria (Auto) 1+ /HPF (Negative) 03/01/17 17: Urine Mucus Few /HPF 03/01/17 17:18 Urine HCG, Qual Negative (Negative) 03/01/17 17:18 Salicylates 0.6 mg/dL (2.8-20.0) L 03/01/17 16:44 Urine Opiates Screen Presumptive negative 03/01/17 17:18 Urine Methadone Screen Presumptive negative 03/01/17 17:18 Acetaminophen < 15.0 ug/mL (10.0-30.0) 03/01/17 16:44 Ur Barbiturates Screen Presumptive negative 03/01/17 17:18 Ur Phencyclidine Scrn Presumptive negative 03/01/17 17:18 Ur Amphetamines Screen Presumptive positive 03/01/17 17:18 U Benzodiazepines Scrn Presumptive negative 03/01/17 17:18 Urine Cocaine Screen Presumptive negative 03/01/17 17:18 U Marijuana (THC) Screen Presumptive negative 03/01/17 17:18 Drugs of Abuse Note Disclamer 03/01/17 17:18 Plasma/Serum Alcohol < 0.01 gm% (0-0.07) 03/01/17 16:44
[2017-03-02] MEDS ORDERED: NACL 0.9% 500 ML 500 ML IV ONE (10:00)
[2017-03-02] MEDS ORDERED: NACL 0.9% 1000 ML 1,000 ML IV ONE (10:00)
[2017-03-02] MEDS: VANCOMYCIN/NS 1 GM/250 ML 1 GM/250 ML BAG IV SCH (11:29)
[2017-03-02 16:52] LABS: Hematocrit 45.5 % (30.3-42.9); Hemoglobin 14.7 gm/dl (10.1-14.3); Mean Corpuscular HGB Conc 32 % (30-34); Mean Corpuscular Hemoglobin 29 pg (28-32); Mean Corpuscular Volume 90 fl (79-97); Platelet Count 227 K/mm3 (140-440); Red Blood Count 5.07 M/mm3 (3.65-5.03); Red Cell Distribution Width 14.5 % (13.2-15.2)
[2017-03-02 17:09] LABS: BUN/Creatinine Ratio 30.9; Calcium 8.1 mg/dL (8.4-10.2); Chloride 116.2 mmol/L (98-107); Potassium 4.3 mmol/L (3.6-5.0)
[2017-03-02] MEDS ORDERED: NACL 0.9% 1000 ML 1,000 ML with SODIUM BICARBONATE 50 MEQ IV SCH (17:22)
[2017-03-02 17:38] LABS: Basophils % (Manual) 0 % (0.0-1.8); Blastocytes % (Manual) 0 %; Eosinophils % (Manual) 0 % (0.0-4.3)
[2017-03-02 17:39] LABS: Anisocytosis 1+
[2017-03-02 17:40] LABS: Diff Status Complete; Platelet Estimate Consistent w Auto
[2017-03-02 20:42] LABS: Anion Gap 17 mmol/L; Blood Urea Nitrogen 29 mg/dL (7-17); Calcium 8.1 mg/dL (8.4-10.2); Carbon Dioxide 15 mmol/L (22-30); Chloride 116.9 mmol/L (98-107); Glucose 208 mg/dL (65-100); Potassium 4.4 mmol/L (3.6-5.0); Sodium 144 mmol/L (137-145)
[2017-03-02] MEDS: LOVENOX SUB-Q SCH (22:08)
--- NOTE | 2017-03-02 23:46 | Consultation ---
History of Present Illness Consult date: 03/02/17 Requesting physician: LAM GEIGER Reason for consult: other (DKA, encephalopathy) Past History Past Medical History: diabetes Past Surgical History: No surgical history, Other (reviewed) Social history: single. denies: smoking, alcohol abuse, prescription drug abuse , IV drug use Family history: hypertension Medications and Allergies Allergies Allergy/AdvReac Type Severity Reaction Status Date / Time No Known Allergies Allergy Unverified 03/01/17 18:17 Home Medications Medication Instructions Recorded Confirmed Last Taken Type Insulin Detemir [Levemir] 26 unit SC DAILY 03/02/17 03/02/17 Unknown History Insulin NPH/Regular [Novolin 70/30] 20 unit SQ BID 03/02/17 03/02/17 Unknown History Active Meds: Active Medications Al Hydrox/Mg Hydrox/Simethicone (Alum-Mag Hydrox-Simeth [id number]/5ml) 30 ml PO Q4H PRN PRN Reason: Indigestion Albuterol (Proventil) 2.5 mg IH Q4HRT PRN PRN Reason: Wheezing Bisacodyl (Dulcolax) 10 mg [place] QDAY PRN PRN Reason: constipation unrelieved by MOM Dextrose (D50w (25gm)) 50 gm IV PRN PRN PRN Reason: HYPOGLYCEMIA Enoxaparin Sodium (Lovenox) 40 mg SUB-Q QDAY@2200 BRY Last Admin: 03/02/17 22:08 Dose: 40 mg Potassium Chloride/Dextrose/Sod Cl (D5w/0.45% Nacl/Kcl 20 Meq) 20 meq in 1,000 mls @ 125 mls/hr IV DIRECT BRY Last Admin: 03/02/17 22:22 Dose: 125 mls/hr Insulin Human Regular 100 (units/ Sodium Chloride) 100 mls @ 1 mls/hr IV TITR BRY; 1 UNITS/HR PRN Reason: Protocol Last Admin: 03/02/17 22:08 Dose: 4 units/hr, 4 mls/hr Piperacillin Sod/Tazobactam Sod (Zosyn/Ns 2.25 Gm/50ml) 2.25 gm in 50 mls @ 100 mls/hr IV Q6HR BRY Last Admin: 03/02/17 17:31 Dose: 100 mls/hr Vancomycin HCl (Vancomycin/Ns 1 Gm/250 Ml) 1 gm in 250 mls @ 166.667 mls/hr IV Q24H BRY Last Admin: 03/02/17 11:29 Dose: 166.667 mls/hr Sodium Bicarbonate 50 meq/ (Sodium Chloride) 1,050 mls @ 150 mls/hr IV DIRECT BRY Magnesium Hydroxide (Milk Of Magnesia) 30 ml PO Q4H PRN PRN Reason: Constipation Vancomycin HCl (Vancomycin Pharmacy To Dose) 1 each IV PKCONSULT BRY PRN Reason: Protocol Review of Systems ROS unobtainable: due to mental status Physical Examination Vital signs: Vital Signs Pulse Resp 112 H 18 03/01/17 15:50 03/01/17 15:50 General appearance: lethargic (responds to sternal rub, otherwise not obeying commands), other Neck: supple, no lymphadenopathy, no JVD Effort: normal Ascultation: Bilateral: diminished breath sounds Cardiovascular: regular rate and rhythm Gastrointestinal: normoactive bowel sounds, soft, non-tender, non-distended Integumentary: other (heavily tatooed) Extremities: no cyanosis, no edema, pulses normal, no ischemia or petechiae Musculoskeletal: no deformities non-focal exam (moves all extremities) Results - Laboratory Findings CBC and BMP: 03/02/17 16:36 03/02/17 20:10 ABG POC ABG pH 7.120 (7.35-7.45) L 03/01/17 23:05 POC ABG pCO2 19.6 (35-45) L 03/01/17 23:05 POC ABG pO2 162 (80-105) H 03/01/17 23:05 POC ABG HCO3 6.4 03/01/17 23:05 POC ABG Total CO2 7 03/01/17 23:05 POC ABG O2 Sat 99 03/01/17 23:05 PT/INR, D-dimer PT 15.4 Sec. (12.2-14.9) H 03/01/17 16:44 INR 1.16 (0.87-1.13) H 03/01/17 16:44 Abnormal lab findings: Abnormal Labs 03/01/17 03/01/17 03/01/17 18:30 18:40 20:17 WBC RBC Hgb Hct Lymphocytes % (Manual) Seg Neutrophils # Man Lymphocytes # (Manual) POC ABG pH POC ABG pCO2 POC ABG pO2 Sodium Potassium 5.2 H Chloride 96.3 L Carbon Dioxide 5 L* BUN 46 H Creatinine 2.2 H Glucose 916 H* POC Glucose > 500 H Lactic Acid 3.00 H* Calcium 03/01/17 03/01/17 03/01/17 20:48 20:52 22:13 WBC RBC Hgb Hct Lymphocytes % (Manual) Seg Neutrophils # Man Lymphocytes # (Manual) POC ABG pH POC ABG pCO2 POC ABG pO2 Sodium Potassium Chloride Carbon Dioxide 5 L* BUN 44 H Creatinine 2.0 H Glucose 825 H* POC Glucose > 500 H > 500 H Lactic Acid Calcium 7.8 L 03/01/17 03/01/17 03/01/17 23:05 23:23 23:46 WBC RBC Hgb Hct Lymphocytes % (Manual) Seg Neutrophils # Man Lymphocytes # (Manual) POC ABG pH 7.120 L POC ABG pCO2 19.6 L POC ABG pO2 162 H Sodium 149 H D Potassium 2.2 L* D Chloride 126.3 H Carbon Dioxide 5 L* BUN 29 H Creatinine Glucose 359 H POC Glucose 435 H Lactic Acid Calcium 3.6 L* D 03/02/17 03/02/17 03/02/17 00:32 01:33 02:32 WBC RBC Hgb Hct Lymphocytes % (Manual) Seg Neutrophils # Man Lymphocytes # (Manual) POC ABG pH POC ABG pCO2 POC ABG pO2 Sodium Potassium Chloride Carbon Dioxide BUN Creatinine Glucose POC Glucose 409 H 373 H 331 H Lactic Acid Calcium 03/02/17 03/02/17 03/02/17 03:17 03:36 04:38 WBC RBC Hgb Hct Lymphocytes % (Manual) Seg Neutrophils # Man Lymphocytes # (Manual) POC ABG pH POC ABG pCO2 POC ABG pO2 Sodium Potassium Chloride 112.0 H Carbon Dioxide 10 L BUN 43 H Creatinine 1.7 H D Glucose 339 H POC Glucose 289 H 273 H Lactic Acid Calcium 03/02/17 03/02/17 03/02/17 05:33 06:44 07:47 WBC RBC Hgb Hct Lymphocytes % (Manual) Seg Neutrophils # Man Lymphocytes # (Manual) POC ABG pH POC ABG pCO2 POC ABG pO2 Sodium Potassium Chloride Carbon Dioxide BUN Creatinine Glucose POC Glucose 251 H 194 H 219 H Lactic Acid Calcium 03/02/17 03/02/17 03/02/17 09:14 09:54 11:15 WBC RBC Hgb Hct Lymphocytes % (Manual) Seg Neutrophils # Man Lymphocytes # (Manual) POC ABG pH POC ABG pCO2 POC ABG pO2 Sodium Potassium Chloride Carbon Dioxide BUN Creatinine Glucose POC Glucose 213 H 194 H 161 H Lactic Acid Calcium 03/02/17 03/02/17 03/02/17 12:04 13:50 14:21 WBC RBC Hgb Hct Lymphocytes % (Manual) Seg Neutrophils # Man Lymphocytes # (Manual) POC ABG pH POC ABG pCO2 POC ABG pO2 Sodium Potassium Chloride Carbon Dioxide BUN Creatinine Glucose POC Glucose 162 H 146 H 167 H Lactic Acid Calcium 03/02/17 03/02/17 03/02/17 15:08 16:31 16:36 WBC RBC Hgb Hct Lymphocytes % (Manual) Seg Neutrophils # Man Lymphocytes # (Manual) POC ABG pH POC ABG pCO2 POC ABG pO2 Sodium 146 H Potassium Chloride 116.2 H Carbon Dioxide 15 L BUN 34 H Creatinine Glucose 213 H POC Glucose 172 H 216 H Lactic Acid Calcium 8.1 L 03/02/17 03/02/17 03/02/17 16:36 17:26 18:31 WBC 25.0 H RBC 5.07 H Hgb 14.7 H Hct 45.5 H D Lymphocytes % (Manual) 1.0 L Seg Neutrophils # Man 17.0 H Lymphocytes # (Manual) 0.3 L POC ABG pH POC ABG pCO2 POC ABG pO2 Sodium Potassium Chloride Carbon Dioxide BUN Creatinine Glucose POC Glucose 232 H 233 H Lactic Acid Calcium 03/02/17 03/02/17 03/02/17 19:23 20:07 20:10 WBC RBC Hgb Hct Lymphocytes % (Manual) Seg Neutrophils # Man Lymphocytes # (Manual) POC ABG pH POC ABG pCO2 POC ABG pO2 Sodium Potassium Chloride 116.9 H Carbon Dioxide 15 L BUN 29 H Creatinine Glucose 208 H POC Glucose 227 H 186 H Lactic Acid Calcium 8.1 L 03/02/17 21:09 WBC RBC Hgb Hct Lymphocytes % (Manual) Seg Neutrophils # Man Lymphocytes # (Manual) POC ABG pH POC ABG pCO2 POC ABG pO2 Sodium Potassium Chloride Carbon Dioxide BUN Creatinine Glucose POC Glucose 143 H Lactic Acid Calcium - Diagnostic Findings Chest x-ray: image reviewed Assessment and Plan - Patient Problems (1) DKA (diabetic ketoacidosis) Current Visit: Yes Status: Acute Qualifiers: Diabetes mellitus type: type 2 Diabetes mellitus complication detail: with coma Qualified Code(s): E13.11 - Other specified diabetes mellitus with ketoacidosis with coma Plan to address problem: IV fluids, monitor lytes and replete as indicated, Get fasting lipid panel, TSH Treat per DKA protocol Insulin drip (2) Toxic encephalopathy Current Visit: Yes Status: Acute Plan to address problem: Metabolic, drug use. Monitor closely- aspiration precautions If she is not awake in the next 24 hours, small bowel feeding tube to initiate enteral feedings Further neuroimaging as indicated (3) Sepsis Current Visit: Yes Status: Acute Qualifiers: Sepsis type: Streptococcus group B Qualified Code(s): A40.1 - Sepsis due to streptococcus, group B Plan to address problem: Empiric antibiotics Follow up cultures and de-escalate in the next 24-48 hours based on microbiologic data and MICs as they become available. Monitor hemodynamics closely (4) Acute renal failure Current Visit: Yes Status: Acute Qualifiers: Acute renal failure type: with acute tubular necrosis Qualified Code(s): N17.0 - Acute kidney failure with tubular necrosis Plan to address problem: Monitor lytes, urine output. Continue with hydration Avoid nephrotoxic agents Adjust all mediations for CrCl (5) Metabolic acidosis Current Visit: Yes Status: Acute Plan to address problem: Mutlifactorial- continue to treat empirically for acute infection Continue IV fluids and monitoring of renal function Continue insulin therapy, IV hydration and treatment for DKA Get am ABG (6) Amphetamine abuse Current Visit: Yes Status: Acute Plan to address problem: Monitor closely for arrhythmias Critical care time in (mins) excluding proc time.: 35 Critical care attestation.: If time is entered above; I have spent that time in minutes in the direct care of this critically ill patient, excluding procedure time.
[2017-03-03] MEDS: ZOSYN/NS 2.25 GM/50ML 2.25 GM/50 ML BAG IV SCH ×4 (00:31→19:21)
[2017-03-03 05:50] LABS: Hematocrit 38.8 % (30.3-42.9); Mean Corpuscular HGB Conc 34 % (30-34); Mean Corpuscular Hemoglobin 30 pg (28-32); Mean Corpuscular Volume 89 fl (79-97); Platelet Count 193 K/mm3 (140-440); Red Blood Count 4.37 M/mm3 (3.65-5.03); Red Cell Distribution Width 14.5 % (13.2-15.2)
[2017-03-03 05:52] LABS: White Blood Count 21.7 K/mm3 (4.5-11.0)
[2017-03-03 06:06] LABS: Anion Gap 15 mmol/L; Blood Urea Nitrogen 22 mg/dL (7-17); Calcium 7.9 mg/dL (8.4-10.2); Carbon Dioxide 19 mmol/L (22-30); Chloride 118.5 mmol/L (98-107); Glucose 123 mg/dL (65-100); Potassium 3.4 mmol/L (3.6-5.0); Sodium 149 mmol/L (137-145)
[2017-03-03 06:41] LABS: ISTAT Base Excess -11; ISTAT DEVICE 0; ISTAT HCO3 15.3; ISTAT PCO2 32.3 (35-45); ISTAT PH 7.285 (7.35-7.45); ISTAT PO2 63 (80-105); ISTAT SO2 89; ISTAT TCO2 16
[2017-03-03] MEDS ORDERED: KPHOS 45 MMOL in NACL 0.9% 500 ML 500 ML IV ONE ×2 (07:38→08:00)
--- NOTE | 2017-03-03 07:47 | Progress Note ---
Assessment and Plan Assessment and plan: --Diabetic ketoacidosis On DKA protocol, insulin drip, sugars reasonable levels, anion gap closed, patient more alert and awake Will start ADA diet, DC insulin drip, had long-acting 7030 in, Accu-Cheks every before meals and at bedtime, sliding scale coverage moderate close Change IV fluids to normal saline, out of bed to chair, possible transfer to medical floor stable I Hemoglobin A1c is 13, diabetic education and nutrition consult --Metabolic encephalopathy, improved patient is alert awake oriented 3 and cooperative --Acute renal failure, vasomotor nephropathy, prerenal azotemia Resolved continue IV hydration, closely monitor renal function, avoid nephrotoxic medications -- amphetamine abuse; Urine toxicology positive , counseling done, advised to quit recreational drug use patient verbalized understanding --Lactic acidosis; corrected ,evaluation for sepsis Empiric antibiotics, negative cultures so far --Hypokalemia; corrected, closely monitor electrolytes --Leukocytosis; rule out sepsis, empiric antibiotics, follow cultures Hypoxia secondary to stress and severe dehydration --Hyperammonemia, hepatic encephalopathy, closely monitor, LFTs within normal limits, follow ammonia levels --DVT prophylaxis; Lovenox Closely monitor the patient and adjust management as needed patient is stable to be transferred out of ICU to medical floor [place] discharge in 1-2 days if stable History Interval history: Patient seen and evaluated this morning in ICU and medical records reviewed Patient's blood sugars are reasonable level, anion gap closed, patient is more alert and awake and responding appropriately New complaints Alert awake Oriented 3 not in acute distress Vital signs reviewed stable Hospitalist Physical - Constitutional Vitals: Temp Pulse Resp BP Pulse Ox 98.8 F 93 H 13 136/86 100 03/03/17 04:00 03/03/17 06:01 03/03/17 06:01 03/03/17 06:01 03/03/17 07:23 General appearance: Present: no acute distress, well-nourished, cachectic, other (dehydrated, responds to deep stimuli) - EENT Eyes: Present: PERRL, EOM intact - Neck Neck: Present: supple, normal ROM - Respiratory Respiratory effort: normal Respiratory: negative: rales, rhonchi, wheezing - Cardiovascular Rhythm: regular Heart Sounds: Present: S1 & S2 - Extremities Extremities: no ischemia, pulses intact, pulses symmetrical Peripheral Pulses: within normal limits - Abdominal General gastrointestinal: soft, non-tender, non-distended, normal bowel sounds - Integumentary Integumentary: Present: clear, warm - Psychiatric Psychiatric: appropriate mood/affect, cooperative - Neurologic Neurologic: CNII-XII intact, moves all extremities Results - Labs CBC & Chem 7: 03/03/17 05:24 03/03/17 13:20 Labs: Laboratory Last Values WBC 21.7 K/mm3 (4.5-11.0) H 03/03/17 05:24 RBC 4.37 M/mm3 (3.65-5.03) 03/03/17 05:24 Hgb 13.0 gm/dl (10.1-14.3) 03/03/17 05:24 Hct 38.8 % (30.3-42.9) D 03/03/17 05:24 MCV 89 fl (79-97) 03/03/17 05:24 MCH 30 pg (28-32) 03/03/17 05:24 MCHC 34 % (30-34) 03/03/17 05:24 RDW 14.5 % (13.2-15.2) 03/03/17 05:24 Plt Count 193 K/mm3 (140-440) 03/03/17 05:24 Add Manual Diff Complete 03/02/17 16:36 Total Counted 200 03/02/17 16:36 Seg Neuts % (Manual) 68.0 % (40.0-70.0) 03/02/17 16:36 Band Neutrophils % 28.0 % 03/02/17 16:36 Lymphocytes % (Manual) 1.0 % (13.4-35.0) L 03/02/17 16:36 Reactive Lymphs % (Man) 0 % 03/02/17 16:36 Monocytes % (Manual) 2.5 % (0.0-7.3) 03/02/17 16:36 Eosinophils % (Manual) 0 % (0.0-4.3) 03/02/17 16:36 Basophils % (Manual) 0 % (0.0-1.8) 03/02/17 16:36 Metamyelocytes % 0.5 % 03/02/17 16:36 Myelocytes % 0 % 03/02/17 16:36 Promyelocytes % 0 % 03/02/17 16:36 Blast Cells % 0 % 03/02/17 16:36 Nucleated RBC % Not Reportable 03/02/17 16:36 Seg Neutrophils # Man 17.0 K/mm3 (1.8-7.7) H 03/02/17 16:36 Band Neutrophils # 7.0 K/mm3 03/02/17 16:36 Lymphocytes # (Manual) 0.3 K/mm3 (1.2-5.4) L 03/02/17 16:36 Abs React Lymphs (Man) 0.0 K/mm3 03/02/17 16:36 Monocytes # (Manual) 0.6 K/mm3 (0.0-0.8) 03/02/17 16:36 Eosinophils # (Manual) 0.0 K/mm3 (0.0-0.4) 03/02/17 16:36 Basophils # (Manual) 0.0 K/mm3 (0.0-0.1) 03/02/17 16:36 Metamyelocytes # 0.1 K/mm3 03/02/17 16:36 Myelocytes # 0.0 K/mm3 03/02/17 16:36 Promyelocytes # 0.0 K/mm3 03/02/17 16:36 Blast Cells # 0.0 K/mm3 03/02/17 16:36 WBC Morphology Not Reportable 03/02/17 16:36 Hypersegmented Neuts Not Reportable 03/02/17 16:36 Hyposegmented Neuts Not Reportable 03/02/17 16:36 Hypogranular Neuts Not Reportable 03/02/17 16:36 Smudge Cells Not Reportable 03/02/17 16:36 Toxic Granulation Not Reportable 03/02/17 16:36 Toxic Vacuolation Not Reportable 03/02/17 16:36 Dohle Bodies Not Reportable 03/02/17 16:36 Pelger-Huet Anomaly Not Reportable 03/02/17 16:36 Chad Rods Not Reportable 03/02/17 16:36 Platelet Estimate Consistent w auto 03/02/17 16:36 Clumped Platelets Not Reportable 03/02/17 16:36 Plt Clumps, EDTA Not Reportable 03/02/17 16:36 Large Platelets Not Reportable 03/02/17 16:36 Giant Platelets Not Reportable 03/02/17 16:36 Platelet Satelliting Not Reportable 03/02/17 16:36 Plt Morphology Comment Not Reportable 03/02/17 16:36 RBC Morphology Not Reportable 03/02/17 16:36 Dimorphic RBCs Not Reportable 03/02/17 16:36 Polychromasia Not Reportable 03/02/17 16:36 Hypochromasia Not Reportable 03/02/17 16:36 Poikilocytosis Not Reportable 03/02/17 16:36 Anisocytosis 1+ 03/02/17 16:36 Microcytosis Not Reportable 03/02/17 16:36 Macrocytosis Not Reportable 03/02/17 16:36 Spherocytes Not Reportable 03/02/17 16:36 Pappenheimer Bodies Not Reportable 03/02/17 16:36 Sickle Cells Not Reportable 03/02/17 16:36 Target Cells Not Reportable 03/02/17 16:36 Tear Drop Cells Not Reportable 03/02/17 16:36 Ovalocytes Not Reportable 03/02/17 16:36 Helmet Cells Not Reportable 03/02/17 16:36 [place] Bodies Not Reportable 03/02/17 16:36 [place] Rings Not Reportable 03/02/17 16:36 [place] Cells Not Reportable 03/02/17 16:36 Bite Cells Not Reportable 03/02/17 16:36 Crenated Cell Not Reportable 03/02/17 16:36 Elliptocytes Not Reportable 03/02/17 16:36 Acanthocytes (Spur) Not Reportable 03/02/17 16:36 Rouleaux Not Reportable 03/02/17 16:36 Hemoglobin C Crystals Not Reportable 03/02/17 16:36 Schistocytes Not Reportable 03/02/17 16:36 Malaria parasites Not Reportable 03/02/17 16:36 Enoc Bodies Not Reportable 03/02/17 16:36 Hem Pathologist Commnt No 03/02/17 16:36 PT 15.4 Sec. (12.2-14.9) H 03/01/17 16:44 INR 1.16 (0.87-1.13) H 03/01/17 16:44 APTT 31.8 Sec. (24.2-36.6) 03/01/17 16:44 POC ABG pH 7.285 (7.35-7.45) L 03/03/17 05:22 POC ABG pCO2 32.3 (35-45) L 03/03/17 05:22 POC ABG pO2 63 (80-105) L 03/03/17 05:22 POC ABG HCO3 15.3 03/03/17 05:22 POC ABG Total CO2 16 03/03/17 05:22 POC ABG O2 Sat 89 03/03/17 05:22 POC ABG Base Excess -11 03/03/17 05:22 FiO2 21 % 03/03/17 05:22 Sodium 149 mmol/L (137-145) H 03/03/17 05:24 Potassium 3.4 mmol/L (3.6-5.0) L D 03/03/17 05:24 Chloride 118.5 mmol/L (98-107) H 03/03/17 05:24 Carbon Dioxide 19 mmol/L (22-30) L 03/03/17 05:24 Anion Gap 15 mmol/L 03/03/17 05:24 BUN 22 mg/dL (7-17) H 03/03/17 05:24 Creatinine 0.8 mg/dL (0.7-1.2) 03/03/17 05:24 Estimated GFR > 60 ml/min 03/03/17 05:24 BUN/Creatinine Ratio 27.50 % 03/03/17 05:24 Glucose 123 mg/dL (65-100) H 03/03/17 05:24 POC Glucose 117 (70-105) H 03/03/17 07:06 Hemoglobin A1c 13.0 % (4-6) H 03/01/17 16:44 Lactic Acid 3.00 mmol/L (0.7-2.0) H* 03/01/17 18:40 Calcium 7.9 mg/dL (8.4-10.2) L 03/03/17 05:24 Phosphorus 1.40 mg/dL (2.5-4.5) L D 03/03/17 05:24 Magnesium 1.90 mg/dL (1.7-2.3) 03/03/17 05:24 Total Bilirubin 0.20 mg/dL (0.1-1.2) 03/01/17 16:44 AST 14 units/L (5-40) 03/01/17 16:44 ALT 10 units/L (7-56) 03/01/17 16:44 Alkaline Phosphatase 199 units/L (35-129) H 03/01/17 16:44 Ammonia 71.0 umol/L (25-60) H 03/01/17 16:44 Lactate Dehydrogenase 263 units/L (91-180) H 03/01/17 16:44 Total Creatine Kinase 47 units/L (30-135) 03/01/17 16:44 Troponin T < 0.010 ng/mL (0.00-0.029) 03/01/17 16:44 Total Protein 8.1 g/dL (6.3-8.2) 03/01/17 16:44 Albumin 3.9 g/dL (3.9-5) 03/01/17 16:44 Albumin/Globulin Ratio 0.9 % 03/01/17 16:44 TSH 1.510 mlU/mL (0.270-4.200) 03/01/17 16:44 Urine Color Yellow (Yellow) 03/01/17 17:18 Urine Turbidity Clear (Clear) 03/01/17 17:18 Urine pH 5.0 (5.0-7.0) 03/01/17 17:18 Ur Specific [place] 1.023 (1.003-1.030) 03/01/17 17:18 Urine Protein 100 mg/dl mg/dL (Negative) 03/01/17 17:18 Urine Glucose (UA) >=500 mg/dL (Negative) 03/01/17 17:18 Urine Ketones 80 mg/dL (Negative) 03/01/17 17:18 Urine Blood Sm (Negative) 03/01/17 17:18 Urine Nitrite Neg (Negative) 03/01/17 17:18 Urine Bilirubin Neg (Negative) 03/01/17 17:18 Urine Urobilinogen < 2.0 mg/dL (<2.0) 03/01/17 17:18 Ur Leukocyte Esterase Neg (Negative) 03/01/17 17:18 Urine WBC (Auto) 1.0 /HPF (0.0-6.0) 03/01/17 17:18 Urine RBC (Auto) 1.0 /HPF (0.0-6.0) 03/01/17 17:18 Urine Bacteria (Auto) 1+ /HPF (Negative) 03/01/17 17:18 Urine Mucus Few /HPF 03/01/17 17:18 Urine HCG, Qual Negative (Negative) 03/01/17 17:18 Salicylates 0.6 mg/dL (2.8-20.0) L 03/01/17 16:44 Urine Opiates Screen Presumptive negative 03/01/17 17:18 Urine Methadone Screen Presumptive negative 03/01/17 17:18 Acetaminophen < 15.0 ug/mL (10.0-30.0) 03/01/17 16:44 Ur Barbiturates Screen Presumptive negative 03/01/17 17:18 Ur Phencyclidine Scrn Presumptive negative 03/01/17 17:18 Ur Amphetamines Screen Presumptive positive 03/01/17 17:18 U Benzodiazepines Scrn Presumptive negative 03/01/17 17:18 Urine Cocaine Screen Presumptive negative 03/01/17 17:18 U Marijuana (THC) Screen Presumptive negative 03/01/17 17:18 Drugs of Abuse Note Disclamer 03/01/17 17:18 Plasma/Serum Alcohol < 0.01 gm% (0-0.07) 03/01/17 16:44
[2017-03-03] MEDS ORDERED: NACL 0.9% 1000 ML 1,000 ML IV SCH (08:00)
[2017-03-03] MEDS ORDERED: MAGNESIUM SULFATE 2GM/50ML 2 GM/50 ML BAG IV ONE (08:00)
[2017-03-03 08:54] LABS: Anisocytosis 1+; Basophils % (Manual) 0 % (0.0-1.8); Blastocytes % (Manual) 0 %; Diff Status Complete; Eosinophils % (Manual) 0 % (0.0-4.3); Platelet Estimate Consistent w Auto
[2017-03-03] MEDS ORDERED: K-DUR PO ONE (09:00)
[2017-03-03] MEDS: NOVOLOG SUB-Q SCH ×2 (12:14→17:25)
[2017-03-03] MEDS: VANCOMYCIN/NS 1 GM/250 ML 1 GM/250 ML BAG IV SCH (12:16)
[2017-03-03 13:51] LABS: Anion Gap 17 mmol/L; BUN/Creatinine Ratio 22.22; Blood Urea Nitrogen 20 mg/dL (7-17); Calcium 7.8 mg/dL (8.4-10.2); Carbon Dioxide 18 mmol/L (22-30); Chloride 106.8 mmol/L (98-107); Glucose 346 mg/dL (65-100); Potassium 3.9 mmol/L (3.6-5.0); Sodium 138 mmol/L (137-145)
--- NOTE | 2017-03-03 14:25 | Event Note ---
Date: 03/03/17 Seen and examined. Vitals, labs, medications, chart reviewed. More awake and alert, responsive. Anion gap has closed, eating and is on weight based insulin. On going leukocytosis with negative cultures. Continue antibiotics for another 24 hours, then discontinue if her WCC keep trending down and cultures remain negative. Transfer to floor
[2017-03-03 19:37] LABS: BUN/Creatinine Ratio 17.77; Blood Urea Nitrogen 16 mg/dL (7-17); Calcium 8.2 mg/dL (8.4-10.2); Carbon Dioxide 18 mmol/L (22-30); Chloride 106.8 mmol/L (98-107); Glucose 423 mg/dL (65-100); Sodium 140 mmol/L (137-145)
[2017-03-03 19:48] LABS: Anion Gap 20 mmol/L; Potassium 4.7 mmol/L (3.6-5.0)
[2017-03-03] MEDS: LOVENOX SUB-Q SCH (21:25)
[2017-03-04] MEDS: ZOSYN/NS 2.25 GM/50ML 2.25 GM/50 ML BAG IV SCH ×3 (00:28→14:08)
[2017-03-04] MEDS: NOVOLOG SUB-Q SCH ×5 (00:55→22:17)
[2017-03-04 07:44] LABS: Basophils % (Auto) 0.3 % (0.0-1.8); Eosinophils % (Auto) 0.4 % (0.0-4.3); Hematocrit 36.4 % (30.3-42.9); Hemoglobin 11.8 gm/dl (10.1-14.3); Mean Corpuscular HGB Conc 32 % (30-34); Mean Corpuscular Hemoglobin 29 pg (28-32); Mean Corpuscular Volume 90 fl (79-97); Platelet Count 169 K/mm3 (140-440); Red Blood Count 4.06 M/mm3 (3.65-5.03); Red Cell Distribution Width 14.7 % (13.2-15.2); White Blood Count 13.2 K/mm3 (4.5-11.0)
[2017-03-04 07:58] LABS: Alanine Aminotransferase 16 units/L (7-56); Albumin 2.8 g/dL (3.9-5); Albumin/Globulin Ratio 1.1 %; Alkaline Phosphatase 114 units/L (35-129); BUN/Creatinine Ratio 18.75; Blood Urea Nitrogen 15 mg/dL (7-17); Carbon Dioxide 20 mmol/L (22-30); Glucose 374 mg/dL (65-100); Total Protein 5.4 g/dL (6.3-8.2)
[2017-03-04 07:59] LABS: Anion Gap 17 mmol/L; Potassium 3.6 mmol/L (3.6-5.0); Sodium 140 mmol/L (137-145)
[2017-03-04 08:03] LABS: Bilirubin,Direct < 0.2 mg/dL (0-0.2); Bilirubin,Indirect 0.1 mg/dL
--- NOTE | 2017-03-04 10:35 | Progress Note ---
Assessment and Plan - Patient Problems (1) Acute encephalopathy Current Visit: Yes Status: Acute Plan to address problem: - likely toxic/metabolic - resolved - CT brain negative (2) Acute renal failure Current Visit: Yes Status: Acute Qualifiers: Acute renal failure type: with acute tubular necrosis Qualified Code(s): N17.0 - Acute kidney failure with tubular necrosis Plan to address problem: - resolved - will replace PO4 - non oliguric (3) DKA (diabetic ketoacidosis) Current Visit: Yes Status: Acute Qualifiers: Diabetes mellitus type: type 2 Diabetes mellitus complication detail: with coma Qualified Code(s): E13.11 - Other specified diabetes mellitus with ketoacidosis with coma Plan to address problem: - resolved - increase 70/30 appropriate as sugars still in 300's (RN instructed to notify attending) - BETTER MEDICATION COMPLIANCE COUNSELLED - D/C PLANNING ONGOING AND PER ATTENDING Subjective Date of service: 03/04/17 Principal diagnosis: DKA; Acute Encephalopathy Interval history: Seen and examined at bedside; 24 hour events reviewed; nursing and respiratory care staff consulted; no adverse overnight events reported to me; sitting in bed; admits to medication non-compliance at home; denies acute chest pains or increased SOB; No N/V/F/C Objective Vital Signs - 12hr 03/03/17 03/04/17 03/04/17 23:55 08:00 10:00 Temperature 99.0 F 98.3 F Pulse Rate [ 76 From Monitor] Pulse Rate [ 76 Left Dorsalis Pedis] Pulse Rate [ 76 Left Radial] Pulse Rate [ 93 H Left] Pulse Rate [ 76 Right Dorsalis Pedis] Pulse Rate [ 76 Right Radial] Respiratory 20 16 Rate Blood Pressure 129/83 Blood Pressure 134/82 [Left Arm] O2 Sat by Pulse 100 98 100 Oximetry Constitutional: no acute distress, alert Eyes: non-icteric ENT: oropharynx moist Neck: supple, no lymphadenopathy, no JVD Effort: normal Ascultation: Bilateral: clear, diminished breath sounds Cardiovascular: regular rate and rhythm Gastrointestinal: normoactive bowel sounds, soft, non-tender, non-distended Integumentary: other (heavily tatooed) Extremities: no cyanosis, no edema, pulses normal, no ischemia or petechiae Neurologic: normal mental status, non-focal exam, pupils equal and round, motor strength normal and Psychiatric: mood appropriate, affect normal CBC and BMP: 03/04/17 07:12 03/04/17 07:12 ABG, PT/INR, D-dimer: ABG POC ABG pH 7.285 (7.35-7.45) L 03/03/17 05:22 POC ABG pCO2 32.3 (35-45) L 03/03/17 05:22 POC ABG pO2 63 (80-105) L 03/03/17 05:22 POC ABG HCO3 15.3 03/03/17 05:22 POC ABG Total CO2 16 03/03/17 05:22 POC ABG O2 Sat 89 03/03/17 05:22 PT/INR, D-dimer PT 15.4 Sec. (12.2-14.9) H 03/01/17 16:44 INR 1.16 (0.87-1.13) H 03/01/17 16:44 Abnormal lab findings: Abnormal Labs 03/01/17 03/01/17 03/01/17 18:30 18:40 20:17 WBC RBC Hgb Hct Seg Neutrophils % Seg Neuts % (Manual) Lymphocytes % (Manual) Seg Neutrophils # Seg Neutrophils # Man Lymphocytes # (Manual) POC ABG pH POC ABG pCO2 POC ABG pO2 Sodium Potassium 5.2 H Chloride 96.3 L Carbon Dioxide 5 L* BUN 46 H Creatinine 2.2 H Glucose 916 H* POC Glucose > 500 H Lactic Acid 3.00 H* Calcium Phosphorus Total Protein Albumin 03/01/17 03/01/17 03/01/17 20:48 20:52 22:13 WBC RBC Hgb Hct Seg Neutrophils % Seg Neuts % (Manual) Lymphocytes % (Manual) Seg Neutrophils # Seg Neutrophils # Man Lymphocytes # (Manual) POC ABG pH POC ABG pCO2 POC ABG pO2 Sodium Potassium Chloride Carbon Dioxide 5 L* BUN 44 H Creatinine 2.0 H Glucose 825 H* POC Glucose > 500 H > 500 H Lactic Acid Calcium 7.8 L Phosphorus Total Protein Albumin 03/01/17 03/01/17 03/01/17 23:05 23:23 23:46 WBC RBC Hgb Hct Seg Neutrophils % Seg Neuts % (Manual) Lymphocytes % (Manual) Seg Neutrophils # Seg Neutrophils # Man Lymphocytes # (Manual) POC ABG pH 7.120 L POC ABG pCO2 19.6 L POC ABG pO2 162 H Sodium 149 H D Potassium 2.2 L* D Chloride 126.3 H Carbon Dioxide 5 L* BUN 29 H Creatinine Glucose 359 H POC Glucose 435 H Lactic Acid Calcium 3.6 L* D Phosphorus Total Protein Albumin 03/02/17 03/02/17 03/02/17 00:32 01:33 02:32 WBC RBC Hgb Hct Seg Neutrophils % Seg Neuts % (Manual) Lymphocytes % (Manual) Seg Neutrophils # Seg Neutrophils # Man Lymphocytes # (Manual) POC ABG pH POC ABG pCO2 POC ABG pO2 Sodium Potassium Chloride Carbon Dioxide BUN Creatinine Glucose POC Glucose 409 H 373 H 331 H Lactic Acid Calcium Phosphorus Total Protein Albumin 03/02/17 03/02/17 03/02/17 03:17 03:36 04:38 WBC RBC Hgb Hct Seg Neutrophils % Seg Neuts % (Manual) Lymphocytes % (Manual) Seg Neutrophils # Seg Neutrophils # Man Lymphocytes # (Manual) POC ABG pH POC ABG pCO2 POC ABG pO2 Sodium Potassium Chloride 112.0 H Carbon Dioxide 10 L BUN 43 H Creatinine 1.7 H D Glucose 339 H POC Glucose 289 H 273 H Lactic Acid Calcium Phosphorus Total Protein Albumin 03/02/17 03/02/17 03/02/17 05:33 06:44 07:47 WBC RBC Hgb Hct Seg Neutrophils % Seg Neuts % (Manual) Lymphocytes % (Manual) Seg Neutrophils # Seg Neutrophils # Man Lymphocytes # (Manual) POC ABG pH POC ABG pCO2 POC ABG pO2 Sodium Potassium Chloride Carbon Dioxide BUN Creatinine Glucose POC Glucose 251 H 194 H 219 H Lactic Acid Calcium Phosphorus Total Protein Albumin 03/02/17 03/02/17 03/02/17 09:14 09:54 11:15 WBC RBC Hgb Hct Seg Neutrophils % Seg Neuts % (Manual) Lymphocytes % (Manual) Seg Neutrophils # Seg Neutrophils # Man Lymphocytes # (Manual) POC ABG pH POC ABG pCO2 POC ABG pO2 Sodium Potassium Chloride Carbon Dioxide BUN Creatinine Glucose POC Glucose 213 H 194 H 161 H Lactic Acid Calcium Phosphorus Total Protein Albumin 03/02/17 03/02/17 03/02/17 12:04 13:50 14:21 WBC RBC Hgb Hct Seg Neutrophils % Seg Neuts % (Manual) Lymphocytes % (Manual) Seg Neutrophils # Seg Neutrophils # Man Lymphocytes # (Manual) POC ABG pH POC ABG pCO2 POC ABG pO2 Sodium Potassium Chloride Carbon Dioxide BUN Creatinine Glucose POC Glucose 162 H 146 H 167 H Lactic Acid Calcium Phosphorus Total Protein Albumin 03/02/17 03/02/17 03/02/17 15:08 16:31 16:36 WBC RBC Hgb Hct Seg Neutrophils % Seg Neuts % (Manual) Lymphocytes % (Manual) Seg Neutrophils # Seg Neutrophils # Man Lymphocytes # (Manual) POC ABG pH POC ABG pCO2 POC ABG pO2 Sodium 146 H Potassium Chloride 116.2 H Carbon Dioxide 15 L BUN 34 H Creatinine Glucose 213 H POC Glucose 172 H 216 H Lactic Acid Calcium 8.1 L Phosphorus Total Protein Albumin 03/02/17 03/02/17 03/02/17 16:36 17:26 18:31 WBC 25.0 H RBC 5.07 H Hgb 14.7 H Hct 45.5 H D Seg Neutrophils % Seg Neuts % (Manual) Lymphocytes % (Manual) 1.0 L Seg Neutrophils # Seg Neutrophils # Man 17.0 H Lymphocytes # (Manual) 0.3 L POC ABG pH POC ABG pCO2 POC ABG pO2 Sodium Potassium Chloride Carbon Dioxide BUN Creatinine Glucose POC Glucose 232 H 233 H Lactic Acid Calcium Phosphorus Total Protein Albumin 03/02/17 03/02/17 03/02/17 19:23 20:07 20:10 WBC RBC Hgb Hct Seg Neutrophils % Seg Neuts % (Manual) Lymphocytes % (Manual) Seg Neutrophils # Seg Neutrophils # Man Lymphocytes # (Manual) POC ABG pH POC ABG pCO2 POC ABG pO2 Sodium Potassium Chloride 116.9 H Carbon Dioxide 15 L BUN 29 H Creatinine Glucose 208 H POC Glucose 227 H 186 H Lactic Acid Calcium 8.1 L Phosphorus Total Protein Albumin 03/02/17 03/02/17 03/02/17 21:09 21:59 23:19 WBC RBC Hgb Hct Seg Neutrophils % Seg Neuts % (Manual) Lymphocytes % (Manual) Seg Neutrophils # Seg Neutrophils # Man Lymphocytes # (Manual) POC ABG pH POC ABG pCO2 POC ABG pO2 Sodium Potassium Chloride Carbon Dioxide BUN Creatinine Glucose POC Glucose 143 H 110 H 110 H Lactic Acid Calcium Phosphorus Total Protein Albumin 03/03/17 03/03/17 03/03/17 02:04 04:14 05:22 WBC RBC Hgb Hct Seg Neutrophils % Seg Neuts % (Manual) Lymphocytes % (Manual) Seg Neutrophils # Seg Neutrophils # Man Lymphocytes # (Manual) POC ABG pH 7.285 L POC ABG pCO2 32.3 L POC ABG pO2 63 L Sodium Potassium Chloride Carbon Dioxide BUN Creatinine Glucose POC Glucose 130 H 132 H Lactic Acid Calcium Phosphorus Total Protein Albumin 03/03/17 03/03/17 03/03/17 05:24 05:24 06:14 WBC 21.7 H RBC Hgb Hct Seg Neutrophils % Seg Neuts % (Manual) 91.0 H Lymphocytes % (Manual) 3.0 L Seg Neutrophils # Seg Neutrophils # Man 19.7 H Lymphocytes # (Manual) 0.7 L POC ABG pH POC ABG pCO2 POC ABG pO2 Sodium 149 H Potassium 3.4 L D Chloride 118.5 H Carbon Dioxide 19 L BUN 22 H Creatinine Glucose 123 H POC Glucose 122 H Lactic Acid Calcium 7.9 L Phosphorus 1.40 L D Total Protein Albumin 03/03/17 03/03/17 03/03/17 07:06 08:02 11:48 WBC RBC Hgb Hct Seg Neutrophils % Seg Neuts % (Manual) Lymphocytes % (Manual) Seg Neutrophils # Seg Neutrophils # Man Lymphocytes # (Manual) POC ABG pH POC ABG pCO2 POC ABG pO2 Sodium Potassium Chloride Carbon Dioxide BUN Creatinine Glucose POC Glucose 117 H 106 H 333 H Lactic Acid Calcium Phosphorus Total Protein Albumin 03/03/17 03/03/17 03/04/17 13:20 18:35 00:24 WBC RBC Hgb Hct Seg Neutrophils % Seg Neuts % (Manual) Lymphocytes % (Manual) Seg Neutrophils # Seg Neutrophils # Man Lymphocytes # (Manual) POC ABG pH POC ABG pCO2 POC ABG pO2 Sodium Potassium Chloride Carbon Dioxide 18 L 18 L BUN 20 H Creatinine Glucose 346 H 423 H POC Glucose 423 H Lactic Acid Calcium 7.8 L 8.2 L Phosphorus Total Protein Albumin 03/04/17 03/04/17 03/04/17 05:37 07:12 07:12 WBC 13.2 H RBC Hgb Hct Seg Neutrophils % 75.4 H Seg Neuts % (Manual) Lymphocytes % (Manual) Seg Neutrophils # 9.9 H Seg Neutrophils # Man Lymphocytes # (Manual) POC ABG pH POC ABG pCO2 POC ABG pO2 Sodium Potassium Chloride Carbon Dioxide 20 L BUN Creatinine Glucose 374 H POC Glucose 362 H Lactic Acid Calcium 8.0 L Phosphorus 2.40 L D Total Protein 5.4 L D Albumin 2.8 L
--- NOTE | 2017-03-04 18:18 | Progress Note ---
Assessment and Plan Assessment and plan: --Diabetic ketoacidosis; corrected, blood sugars uncontrolled Hemoglobin A1c is 13, diabetic education and nutrition consult --1 diabetes mellitus; uncontrolled, increase 7030 insulin to 24 units twice a day Accu-Chek sliding scale coverage with high-dose, ADA diet --Metabolic encephalopathy, improved patient is alert awake oriented 3 and cooperative --Acute renal failure, vasomotor nephropathy, prerenal azotemia Resolved continue IV hydration, closely monitor renal function, avoid nephrotoxic medications -- amphetamine abuse; counseling done, advised to quit recreational drug use patient verbalized understanding --Lactic acidosis; corrected ,evaluation for sepsis, Empiric antibiotics, negative cultures so far --Hypokalemia; corrected, closely monitor electrolytes --Leukocytosis; rule out sepsis, empiric antibiotics, follow cultures Hypoxia secondary to stress and severe dehydration --Hyperammonemia, corrected --DVT prophylaxis; Lovenox Closely monitor sugars, if reasonable level can be discharged home tomorrow DC planning; case management, possible home health at discharge Plan of care discussed with the patient as well as her History Interval history: Patient seen and evaluated medical records reviewed No new events reported by the nursing staff Patient is alert awake oriented 3 not in acute distress Blood sugars are uncontrolled, patient has no new complaints Hospitalist Physical - Constitutional Vitals: Temp Pulse Resp BP Pulse Ox 98.5 F 86 16 122/88 98 03/04/17 16:22 03/04/17 16:22 03/04/17 16:22 03/04/17 16:22 03/04/17 16:22 General appearance: Present: no acute distress, well-nourished, cachectic - EENT Eyes: Present: PERRL, EOM intact - Neck Neck: Present: supple, normal ROM - Respiratory Respiratory effort: normal Respiratory: negative: rales, rhonchi, wheezing - Cardiovascular Rhythm: regular Heart Sounds: Present: S1 & S2 - Extremities Extremities: no ischemia, pulses intact, pulses symmetrical - Abdominal General gastrointestinal: soft, non-tender, non-distended, normal bowel sounds - Integumentary Integumentary: Present: clear, warm - Psychiatric Psychiatric: appropriate mood/affect, cooperative - Neurologic Neurologic: CNII-XII intact, moves all extremities Results - Labs CBC & Chem 7: 03/04/17 07:12 03/04/17 07:12 Labs: Laboratory Last Values WBC 13.2 K/mm3 (4.5-11.0) H 03/04/17 07:12 RBC 4.06 M/mm3 (3.65-5.03) 03/04/17 07:12 Hgb 11.8 gm/dl (10.1-14.3) 03/04/17 07:12 Hct 36.4 % (30.3-42.9) 03/04/17 07:12 MCV 90 fl (79-97) 03/04/17 07:12 MCH 29 pg (28-32) 03/04/17 07:12 MCHC 32 % (30-34) 03/04/17 07:12 RDW 14.7 % (13.2-15.2) 03/04/17 07:12 Plt Count 169 K/mm3 (140-440) 03/04/17 07:12 Lymph % (Auto) 20.6 % (13.4-35.0) 03/04/17 07:12 [place] % (Auto) 3.3 % (0.0-7.3) 03/04/17 07:12 Eos % (Auto) 0.4 % (0.0-4.3) 03/04/17 07:12 Baso % (Auto) 0.3 % (0.0-1.8) 03/04/17 07:12 Lymph # 2.7 K/mm3 (1.2-5.4) 03/04/17 07:12 [place] # 0.4 K/mm3 (0.0-0.8) 03/04/17 07:12 Eos # 0.1 K/mm3 (0.0-0.4) 03/04/17 07:12 Baso # 0.0 K/mm3 (0.0-0.1) 03/04/17 07:12 Add Manual Diff Complete 03/03/17 05:24 Total Counted 100 03/03/17 05:24 Seg Neutrophils % 75.4 % (40.0-70.0) H 03/04/17 07:12 Seg Neuts % (Manual) 91.0 % (40.0-70.0) H 03/03/17 05:24 Band Neutrophils % 4.0 % 03/03/17 05:24 Lymphocytes % (Manual) 3.0 % (13.4-35.0) L 03/03/17 05:24 Reactive Lymphs % (Man) 0 % 03/03/17 05:24 Monocytes % (Manual) 2.0 % (0.0-7.3) 03/03/17 05:24 Eosinophils % (Manual) 0 % (0.0-4.3) 03/03/17 05:24 Basophils % (Manual) 0 % (0.0-1.8) 03/03/17 05:24 Metamyelocytes % 0 % 03/03/17 05:24 Myelocytes % 0 % 03/03/17 05:24 Promyelocytes % 0 % 03/03/17 05:24 Blast Cells % 0 % 03/03/17 05:24 Nucleated RBC % Not Reportable 03/03/17 05:24 Seg Neutrophils # 9.9 K/mm3 (1.8-7.7) H 03/04/17 07:12 Seg Neutrophils # Man 19.7 K/mm3 (1.8-7.7) H 03/03/17 05:24 Band Neutrophils # 0.9 K/mm3 03/03/17 05:24 Lymphocytes # (Manual) 0.7 K/mm3 (1.2-5.4) L 03/03/17 05:24 Abs React Lymphs (Man) 0.0 K/mm3 03/03/17 05:24 Monocytes # (Manual) 0.4 K/mm3 (0.0-0.8) 03/03/17 05:24 Eosinophils # (Manual) 0.0 K/mm3 (0.0-0.4) 03/03/17 05:24 Basophils # (Manual) 0.0 K/mm3 (0.0-0.1) 03/03/17 05:24 Metamyelocytes # 0.0 K/mm3 03/03/17 05:24 Myelocytes # 0.0 K/mm3 03/03/17 05:24 Promyelocytes # 0.0 K/mm3 03/03/17 05:24 Blast Cells # 0.0 K/mm3 03/03/17 05:24 WBC Morphology Not Reportable 03/03/17 05:24 Hypersegmented Neuts Not Reportable 03/03/17 05:24 Hyposegmented Neuts Not Reportable 03/03/17 05:24 Hypogranular Neuts Not Reportable 03/03/17 05:24 Smudge Cells Not Reportable 03/03/17 05:24 Toxic Granulation Not Reportable 03/03/17 05:24 Toxic Vacuolation Not Reportable 03/03/17 05:24 Dohle Bodies Not Reportable 03/03/17 05:24 Pelger-Huet Anomaly Not Reportable 03/03/17 05:24 Chad Rods Not Reportable 03/03/17 05:24 Platelet Estimate Consistent w auto 03/03/17 05:24 Clumped Platelets Not Reportable 03/03/17 05:24 Plt Clumps, EDTA Not Reportable 03/03/17 05:24 Large Platelets Not Reportable 03/03/17 05:24 Giant Platelets Not Reportable 03/03/17 05:24 Platelet Satelliting Not Reportable 03/03/17 05:24 Plt Morphology Comment Not Reportable 03/03/17 05:24 RBC Morphology Not Reportable 03/03/17 05:24 Dimorphic RBCs Not Reportable 03/03/17 05:24 Polychromasia Not Reportable 03/03/17 05:24 Hypochromasia Not Reportable 03/03/17 05:24 Poikilocytosis Not Reportable 03/03/17 05:24 Anisocytosis 1+ 03/03/17 05:24 Microcytosis Not Reportable 03/03/17 05:24 Macrocytosis Not Reportable 03/03/17 05:24 Spherocytes Not Reportable 03/03/17 05:24 Pappenheimer Bodies Not Reportable 03/03/17 05:24 Sickle Cells Not Reportable 03/03/17 05:24 Target Cells Not Reportable 03/03/17 05:24 Tear Drop Cells Not Reportable 03/03/17 05:24 Ovalocytes Not Reportable 03/03/17 05:24 Helmet Cells Not Reportable 03/03/17 05:24 [place] Bodies Not Reportable 03/03/17 05:24 [place] Rings Not Reportable 03/03/17 05:24 [place] Cells Not Reportable 03/03/17 05:24 Bite Cells Not Reportable 03/03/17 05:24 Crenated Cell Not Reportable 03/03/17 05:24 Elliptocytes Not Reportable 03/03/17 05:24 Acanthocytes (Spur) Not Reportable 03/03/17 05:24 Rouleaux Not Reportable 03/03/17 05:24 Hemoglobin C Crystals Not Reportable 03/03/17 05:24 Schistocytes Not Reportable 03/03/17 05:24 Malaria parasites Not Reportable 03/03/17 05:24 Enoc Bodies Not Reportable 03/03/17 05:24 Hem Pathologist Commnt No 03/03/17 05:24 PT 15.4 Sec. (12.2-14.9) H 03/01/17 16:44 INR 1.16 (0.87-1.13) H 03/01/17 16:44 APTT 31.8 Sec. (24.2-36.6) 03/01/17 16:44 POC ABG pH 7.285 (7.35-7.45) L 03/03/17 05:22 POC ABG pCO2 32.3 (35-45) L 03/03/17 05:22 POC ABG pO2 63 (80-105) L 03/03/17 05:22 POC ABG HCO3 15.3 03/03/17 05:22 POC ABG Total CO2 16 03/03/17 05:22 POC ABG O2 Sat 89 03/03/17 05:22 POC ABG Base Excess -11 03/03/17 05:22 FiO2 21 % 03/03/17 05:22 Sodium 140 mmol/L (137-145) 03/04/17 07:12 Potassium 3.6 mmol/L (3.6-5.0) D 03/04/17 07:12 Chloride 107.0 mmol/L (98-107) 03/04/17 07:12 Carbon Dioxide 20 mmol/L (22-30) L 03/04/17 07:12 Anion Gap 17 mmol/L 03/04/17 07:12 BUN 15 mg/dL (7-17) 03/04/17 07:12 Creatinine 0.8 mg/dL (0.7-1.2) 03/04/17 07:12 Estimated GFR > 60 ml/min 03/04/17 07:12 BUN/Creatinine Ratio 18.75 % 03/04/17 07:12 Glucose 374 mg/dL (65-100) H 03/04/17 07:12 POC Glucose 294 (70-105) H 03/04/17 15:55 Hemoglobin A1c 13.0 % (4-6) H 03/01/17 16:44 Lactic Acid 3.00 mmol/L (0.7-2.0) H* 03/01/17 18:40 Calcium 8.0 mg/dL (8.4-10.2) L 03/04/17 07:12 Phosphorus 2.40 mg/dL (2.5-4.5) L D 03/04/17 07:12 Magnesium 1.90 mg/dL (1.7-2.3) 03/04/17 07:12 Total Bilirubin 0.30 mg/dL (0.1-1.2) 03/04/17 07:12 Direct Bilirubin < 0.2 mg/dL (0-0.2) 03/04/17 07:12 Indirect Bilirubin 0.1 mg/dL 03/04/17 07:12 AST 17 units/L (5-40) 03/04/17 07:12 ALT 16 units/L (7-56) 03/04/17 07:12 Alkaline Phosphatase 114 units/L (35-129) 03/04/17 07:12 Ammonia 36.0 umol/L (25-60) 03/04/17 07:12 Lactate Dehydrogenase 263 units/L (91-180) H 03/01/17 16:44 Total Creatine Kinase 47 units/L (30-135) 03/01/17 16:44 Troponin T < 0.010 ng/mL (0.00-0.029) 03/01/17 16:44 Total Protein 5.4 g/dL (6.3-8.2) L D 03/04/17 07:12 Albumin 2.8 g/dL (3.9-5) L 03/04/17 07:12 Albumin/Globulin Ratio 1.1 % 03/04/17 07:12 TSH 1.510 mlU/mL (0.270-4.200) 03/01/17 16:44 Urine Color Yellow (Yellow) 03/01/17 17:18 Urine Turbidity Clear (Clear) 03/01/17 17:18 Urine pH 5.0 (5.0-7.0) 03/01/17 17:18 Ur Specific [place] 1.023 (1.003-1.030) 03/01/17 17:18 Urine Protein 100 mg/dl mg/dL (Negative) 03/01/17 17:18 Urine Glucose (UA) >=500 mg/dL (Negative) 03/01/17 17:18 Urine Ketones 80 mg/dL (Negative) 03/01/17 17:18 Urine Blood Sm (Negative) 03/01/17 17:18 Urine Nitrite Neg (Negative) 03/01/17 17:18 Urine Bilirubin Neg (Negative) 03/01/17 17:18 Urine Urobilinogen < 2.0 mg/dL (<2.0) 03/01/17 17:18 Ur Leukocyte Esterase Neg (Negative) 03/01/17 17:18 Urine WBC (Auto) 1.0 /HPF (0.0-6.0) 03/01/17 17:18 Urine RBC (Auto) 1.0 /HPF (0.0-6.0) 03/01/17 17:18 Urine Bacteria (Auto) 1+ /HPF (Negative) 03/01/17 17:18 Urine Mucus Few /HPF 03/01/17 17:18 Urine HCG, Qual Negative (Negative) 03/01/17 17:18 Salicylates 0.6 mg/dL (2.8-20.0) L 03/01/17 16:44 Urine Opiates Screen Presumptive negative 03/01/17 17:18 Urine Methadone Screen Presumptive negative 03/01/17 17:18 Acetaminophen < 15.0 ug/mL (10.0-30.0) 03/01/17 16:44 Ur Barbiturates Screen Presumptive negative 03/01/17 17:18 Ur Phencyclidine Scrn Presumptive negative 03/01/17 17:18 Ur Amphetamines Screen Presumptive positive 03/01/17 17:18 U Benzodiazepines Scrn Presumptive negative 03/01/17 17:18 Urine Cocaine Screen Presumptive negative 03/01/17 17:18 U Marijuana (THC) Screen Presumptive negative 03/01/17 17:18 Drugs of Abuse Note Disclamer 03/01/17 17:18 Plasma/Serum Alcohol < 0.01 gm% (0-0.07) 03/01/17 16:44
[2017-03-04] MEDS: LOVENOX SUB-Q SCH (22:16)
[2017-03-05 08:38] VITALS: BP 122/80
[2017-03-05] MEDS: NOVOLOG SUB-Q SCH ×2 (08:53→12:29)
--- NOTE | 2017-03-05 11:09 | Discharge Summary ---
Providers - Providers Date of Admission: 03/01/17 17:16 Date of discharge: 03/05/17 Attending physician: LAM GEIGER Primary care physician: [employer]PERATOR Hospitalization Condition: Stable Disposition: DC/[place]-06 HOME UNDER HOME [facility] Core Measure Documentation - Palliative Care Palliative Care/ Comfort Measures: Not Applicable - Core Measures Any of the following diagnoses?: none Exam - Constitutional Vitals: Temp Pulse Resp BP Pulse Ox 98.4 F 85 84 H 122/80 98 03/05/17 08:00 03/04/17 23:00 03/05/17 08:00 03/05/17 08:00 03/05/17 08:00 General appearance: Present: no acute distress, well-nourished - EENT Eyes: Present: PERRL, EOM intact - Neck Neck: Present: supple, normal ROM - Respiratory Respiratory effort: normal Respiratory: negative: rales, rhonchi, wheezing - Cardiovascular Rhythm: regular Heart Sounds: Present: S1 & S2 - Extremities Extremities: no ischemia, No edema - Abdominal General gastrointestinal: Present: soft, non-tender, non-distended, normal bowel sounds - Integumentary Integumentary: Present: clear, warm - Musculoskeletal Musculoskeletal: strength equal bilaterally - Psychiatric Psychiatric: appropriate mood/affect, cooperative - Neurologic Neurologic: CNII-XII intact, moves all extremities Plan Activity: no restrictions Diet: diabetic Follow up with: PRIMARY CAREMD [Primary Care Provider] - 3-5 Days DECLAN WEBSTER MD [Staff Physician] - 7 Days Prescriptions: Insulin NPH/Regular [NovoLIN 70/30] 28 unit SQ BID 30 Days Insulin Regular, Human [HumuLIN R] 5 unit SQ ACHS 30 Days Other Discharge Orders: Glucometer (Amb) Location: Determined By Patient Glucometer supplies[Amb] Location: Determined By Patient
--- NOTE | 2017-03-05 11:09 | Progress Note ---
Assessment and Plan - Patient Problems (1) Acute encephalopathy Status: Acute Plan to address problem: - likely toxic/metabolic - resolved - CT brain negative (2) Acute renal failure Status: Acute Qualifiers: Acute renal failure type: with acute tubular necrosis Qualified Code(s): N17.0 - Acute kidney failure with tubular necrosis Plan to address problem: - resolved - PO4 replaced - non oliguric (3) DKA (diabetic ketoacidosis) Status: Acute Qualifiers: Diabetes mellitus type: type 2 Diabetes mellitus complication detail: with coma Qualified Code(s): E13.11 - Other specified diabetes mellitus with ketoacidosis with coma Plan to address problem: - resolved - 70/30 dose increased - Again stressed dietary and medication compliance importance - d/c planning ongoing but may be held due to high sugars Subjective Date of service: 03/05/17 Principal diagnosis: DKA; Acute Encephalopathy Interval history: Seen and examined at bedside; 24 hour events reviewed; nursing and respiratory care staff consulted; no adverse overnight events reported to me; resting peacefully in bed; sugars still running high; remains non compliant with dietary recommendations; alert; denies acute chest pains or increased SOB Objective Vital Signs - 12hr 03/05/17 08:00 Temperature 98.4 F Respiratory 84 H Rate Blood Pressure 122/80 [Left Arm] O2 Sat by Pulse 98 Oximetry Constitutional: no acute distress, alert Eyes: non-icteric ENT: oropharynx moist Neck: supple, no lymphadenopathy, no JVD Effort: normal Ascultation: Bilateral: clear Cardiovascular: regular rate and rhythm Gastrointestinal: normoactive bowel sounds, soft, non-tender, non-distended Integumentary: other (heavily tatooed) Extremities: no cyanosis, no edema, pulses normal, no ischemia or petechiae Neurologic: normal mental status, non-focal exam, pupils equal and round, motor strength normal and Psychiatric: mood appropriate, affect normal CBC and BMP: 03/04/17 07:12 03/04/17 07:12 ABG, PT/INR, D-dimer: ABG POC ABG pH 7.285 (7.35-7.45) L 03/03/17 05:22 POC ABG pCO2 32.3 (35-45) L 03/03/17 05:22 POC ABG pO2 63 (80-105) L 03/03/17 05:22 POC ABG HCO3 15.3 07/12/17 05:22 POC ABG Total CO2 16 03/03/17 05:22 POC ABG O2 Sat 89 03/03/17 05:22 PT/INR, D-dimer PT 15.4 Sec. (12.2-14.9) H 03/01/17 16:44 INR 1.16 (0.87-1.13) H 03/01/17 16:44 Abnormal lab findings: Abnormal Labs 03/01/17 03/01/17 03/01/17 18:30 18:40 20:17 WBC RBC Hgb Hct Seg Neutrophils % Seg Neuts % (Manual) Lymphocytes % (Manual) Seg Neutrophils # Seg Neutrophils # Man Lymphocytes # (Manual) POC ABG pH POC ABG pCO2 POC ABG pO2 Sodium Potassium 5.2 H Chloride 96.3 L Carbon Dioxide 5 L* BUN 46 H Creatinine 2.2 H Glucose 916 H* POC Glucose > 500 H Lactic Acid 3.00 H* Calcium Phosphorus Total Protein Albumin 03/01/17 03/01/17 03/01/17 20:48 20:52 22:13 WBC RBC Hgb Hct Seg Neutrophils % Seg Neuts % (Manual) Lymphocytes % (Manual) Seg Neutrophils # Seg Neutrophils # Man Lymphocytes # (Manual) POC ABG pH POC ABG pCO2 POC ABG pO2 Sodium Potassium Chloride Carbon Dioxide 5 L* BUN 44 H Creatinine 2.0 H Glucose 825 H* POC Glucose > 500 H > 500 H Lactic Acid Calcium 7.8 L Phosphorus Total Protein Albumin 03/01/17 03/01/17 03/01/17 23:05 23:23 23:46 WBC RBC Hgb Hct Seg Neutrophils % Seg Neuts % (Manual) Lymphocytes % (Manual) Seg Neutrophils # Seg Neutrophils # Man Lymphocytes # (Manual) POC ABG pH 7.120 L POC ABG pCO2 19.6 L POC ABG pO2 162 H Sodium 149 H D Potassium 2.2 L* D Chloride 126.3 H Carbon Dioxide 5 L* BUN 29 H Creatinine Glucose 359 H POC Glucose 435 H Lactic Acid Calcium 3.6 L* D Phosphorus Total Protein Albumin 03/02/17 03/02/17 03/02/17 00:32 01:33 02:32 WBC RBC Hgb Hct Seg Neutrophils % Seg Neuts % (Manual) Lymphocytes % (Manual) Seg Neutrophils # Seg Neutrophils # Man Lymphocytes # (Manual) POC ABG pH POC ABG pCO2 POC ABG pO2 Sodium Potassium Chloride Carbon Dioxide BUN Creatinine Glucose POC Glucose 409 H 373 H 331 H Lactic Acid Calcium Phosphorus Total Protein Albumin 03/02/17 03/02/17 03/02/17 03:17 03:36 04:38 WBC RBC Hgb Hct Seg Neutrophils % Seg Neuts % (Manual) Lymphocytes % (Manual) Seg Neutrophils # Seg Neutrophils # Man Lymphocytes # (Manual) POC ABG pH POC ABG pCO2 POC ABG pO2 Sodium Potassium Chloride 112.0 H Carbon Dioxide 10 L BUN 43 H Creatinine 1.7 H D Glucose 339 H POC Glucose 289 H 273 H Lactic Acid Calcium Phosphorus Total Protein Albumin 03/02/17 03/02/17 03/02/17 05:33 06:44 07:47 WBC RBC Hgb Hct Seg Neutrophils % Seg Neuts % (Manual) Lymphocytes % (Manual) Seg Neutrophils # Seg Neutrophils # Man Lymphocytes # (Manual) POC ABG pH POC ABG pCO2 POC ABG pO2 Sodium Potassium Chloride Carbon Dioxide BUN Creatinine Glucose POC Glucose 251 H 194 H 219 H Lactic Acid Calcium Phosphorus Total Protein Albumin 03/02/17 03/02/17 03/02/17 09:14 09:54 11:15 WBC RBC Hgb Hct Seg Neutrophils % Seg Neuts % (Manual) Lymphocytes % (Manual) Seg Neutrophils # Seg Neutrophils # Man Lymphocytes # (Manual) POC ABG pH POC ABG pCO2 POC ABG pO2 Sodium Potassium Chloride Carbon Dioxide BUN Creatinine Glucose POC Glucose 213 H 194 H 161 H Lactic Acid Calcium Phosphorus Total Protein Albumin 03/02/17 03/02/17 03/02/17 12:04 13:50 14:21 WBC RBC Hgb Hct Seg Neutrophils % Seg Neuts % (Manual) Lymphocytes % (Manual) Seg Neutrophils # Seg Neutrophils # Man Lymphocytes # (Manual) POC ABG pH POC ABG pCO2 POC ABG pO2 Sodium Potassium Chloride Carbon Dioxide BUN Creatinine Glucose POC Glucose 162 H 146 H 167 H Lactic Acid Calcium Phosphorus Total Protein Albumin 03/02/17 03/02/17 03/02/17 15:08 16:31 16:36 WBC RBC Hgb Hct Seg Neutrophils % Seg Neuts % (Manual) Lymphocytes % (Manual) Seg Neutrophils # Seg Neutrophils # Man Lymphocytes # (Manual) POC ABG pH POC ABG pCO2 POC ABG pO2 Sodium 146 H Potassium Chloride 116.2 H Carbon Dioxide 15 L BUN 34 H Creatinine Glucose 213 H POC Glucose 172 H 216 H Lactic Acid Calcium 8.1 L Phosphorus Total Protein Albumin 03/02/17 03/02/17 03/02/17 16:36 17:26 18:31 WBC 25.0 H RBC 5.07 H Hgb 14.7 H Hct 45.5 H D Seg Neutrophils % Seg Neuts % (Manual) Lymphocytes % (Manual) 1.0 L Seg Neutrophils # Seg Neutrophils # Man 17.0 H Lymphocytes # (Manual) 0.3 L POC ABG pH POC ABG pCO2 POC ABG pO2 Sodium Potassium Chloride Carbon Dioxide BUN Creatinine Glucose POC Glucose 232 H 233 H Lactic Acid Calcium Phosphorus Total Protein Albumin 03/02/17 03/02/17 03/02/17 19:23 20:07 20:10 WBC RBC Hgb Hct Seg Neutrophils % Seg Neuts % (Manual) Lymphocytes % (Manual) Seg Neutrophils # Seg Neutrophils # Man Lymphocytes # (Manual) POC ABG pH POC ABG pCO2 POC ABG pO2 Sodium Potassium Chloride 116.9 H Carbon Dioxide 15 L BUN 29 H Creatinine Glucose 208 H POC Glucose 227 H 186 H Lactic Acid Calcium 8.1 L Phosphorus Total Protein Albumin 03/02/17 03/02/17 03/02/17 21:09 21:59 23:19 WBC RBC Hgb Hct Seg Neutrophils % Seg Neuts % (Manual) Lymphocytes % (Manual) Seg Neutrophils # Seg Neutrophils # Man Lymphocytes # (Manual) POC ABG pH POC ABG pCO2 POC ABG pO2 Sodium Potassium Chloride Carbon Dioxide BUN Creatinine Glucose POC Glucose 143 H 110 H 110 H Lactic Acid Calcium Phosphorus Total Protein Albumin 03/03/17 03/03/17 03/03/17 02:04 04:14 05:22 WBC RBC Hgb Hct Seg Neutrophils % Seg Neuts % (Manual) Lymphocytes % (Manual) Seg Neutrophils # Seg Neutrophils # Man Lymphocytes # (Manual) POC ABG pH 7.285 L POC ABG pCO2 32.3 L POC ABG pO2 63 L Sodium Potassium Chloride Carbon Dioxide BUN Creatinine Glucose POC Glucose 130 H 132 H Lactic Acid Calcium Phosphorus Total Protein Albumin 03/03/17 03/03/17 03/03/17 05:24 05:24 06:14 WBC 21.7 H RBC Hgb Hct Seg Neutrophils % Seg Neuts % (Manual) 91.0 H Lymphocytes % (Manual) 3.0 L Seg Neutrophils # Seg Neutrophils # Man 19.7 H Lymphocytes # (Manual) 0.7 L POC ABG pH POC ABG pCO2 POC ABG pO2 Sodium 149 H Potassium 3.4 L D Chloride 118.5 H Carbon Dioxide 19 L BUN 22 H Creatinine Glucose 123 H POC Glucose 122 H Lactic Acid Calcium 7.9 L Phosphorus 1.40 L D Total Protein Albumin 03/03/17 03/03/17 03/03/17 07:06 08:02 11:48 WBC RBC Hgb Hct Seg Neutrophils % Seg Neuts % (Manual) Lymphocytes % (Manual) Seg Neutrophils # Seg Neutrophils # Man Lymphocytes # (Manual) POC ABG pH POC ABG pCO2 POC ABG pO2 Sodium Potassium Chloride Carbon Dioxide BUN Creatinine Glucose POC Glucose 117 H 106 H 333 H Lactic Acid Calcium Phosphorus Total Protein Albumin 03/03/17 03/03/17 03/04/17 13:20 18:35 00:24 WBC RBC Hgb Hct Seg Neutrophils % Seg Neuts % (Manual) Lymphocytes % (Manual) Seg Neutrophils # Seg Neutrophils # Man Lymphocytes # (Manual) POC ABG pH POC ABG pCO2 POC ABG pO2 Sodium Potassium Chloride Carbon Dioxide 18 L 18 L BUN 20 H Creatinine Glucose 346 H 423 H POC Glucose 423 H Lactic Acid Calcium 7.8 L 8.2 L Phosphorus Total Protein Albumin 03/04/17 03/04/17 03/04/17 05:37 07:12 07:12 WBC 13.2 H RBC Hgb Hct Seg Neutrophils % 75.4 H Seg Neuts % (Manual) Lymphocytes % (Manual) Seg Neutrophils # 9.9 H Seg Neutrophils # Man Lymphocytes # (Manual) POC ABG pH POC ABG pCO2 POC ABG pO2 Sodium Potassium Chloride Carbon Dioxide 20 L BUN Creatinine Glucose 374 H POC Glucose 362 H Lactic Acid Calcium 8.0 L Phosphorus 2.40 L D Total Protein 5.4 L D Albumin 2.8 L 03/04/17 03/04/17 03/04/17 11:46 15:55 21:16 WBC RBC Hgb Hct Seg Neutrophils % Seg Neuts % (Manual) Lymphocytes % (Manual) Seg Neutrophils # Seg Neutrophils # Man Lymphocytes # (Manual) POC ABG pH POC ABG pCO2 POC ABG pO2 Sodium Potassium Chloride Carbon Dioxide BUN Creatinine Glucose POC Glucose 390 H 294 H > 500 H Lactic Acid Calcium Phosphorus Total Protein Albumin 03/05/17 06:22 WBC RBC Hgb Hct Seg Neutrophils % Seg Neuts % (Manual) Lymphocytes % (Manual) Seg Neutrophils # Seg Neutrophils # Man Lymphocytes # (Manual) POC ABG pH POC ABG pCO2 POC ABG pO2 Sodium Potassium Chloride Carbon Dioxide BUN Creatinine Glucose POC Glucose 159 H Lactic Acid Calcium Phosphorus Total Protein Albumin
--- NOTE | 2017-03-05 13:53 | Progress Note ---
Assessment and Plan Assessment and plan: --Uncontrolled diabetes mellitus Sugars running more than 500s, secondary to patient's noncompliance Patient has plenty of outside food in her room Strongly advised to comply with diet and medications Will hold the discharge, increase 70/30 insulin dose --Diabetic ketoacidosis; corrected, blood sugars uncontrolled Hemoglobin A1c is 13, diabetic education and nutrition consult --1 diabetes mellitus; uncontrolled, increase 7030 insulin to 24 units twice a day Accu-Chek sliding scale coverage with high-dose, ADA diet --Metabolic encephalopathy, improved patient is alert awake oriented 3 and cooperative --Acute renal failure, vasomotor nephropathy, prerenal azotemia Resolved continue IV hydration, closely monitor renal function, avoid nephrotoxic medications -- amphetamine abuse; counseling done, advised to quit recreational drug use patient verbalized understanding --Lactic acidosis; corrected ,evaluation for sepsis, on Empiric antibiotics, but discontinued --Hypokalemia; corrected, closely monitor electrolytes --Leukocytosis; rule out sepsis, empiric antibiotics, follow cultures Hypoxia secondary to stress and severe dehydration --Hyperammonemia, corrected --DVT prophylaxis; Lovenox I'll Cancel discharge, closely monitor blood sugars and adjust the management Diabetic education, nutrition consult History Interval history: Patient seen and evaluated this morning Initially planned discharge, this was secondary to noncompliance, taking a lot of outside food Patient's blood sugars are very high more than 500 repeatedly Discharge was held, patient counseled and advised not to take any outside food except for ADA diet during the hospital Patient verbalized understanding Patient is alert and oriented 3 Not in acute distress Vital signs reviewed Hospitalist Physical - Constitutional Vitals: Temp Pulse Resp BP Pulse Ox 98.4 F 85 84 H 122/80 98 03/05/17 08:00 03/04/17 23:00 03/05/17 08:00 03/05/17 08:00 03/05/17 08:00 General appearance: Present: no acute distress, well-nourished - EENT Eyes: Present: PERRL, EOM intact - Neck Neck: Present: supple, normal ROM - Respiratory Respiratory effort: normal Respiratory: negative: rales, rhonchi, wheezing - Cardiovascular Rhythm: regular Heart Sounds: Present: S1 & S2 - Extremities Extremities: no ischemia, No edema Peripheral Pulses: within normal limits - Abdominal General gastrointestinal: soft, non-tender, non-distended, normal bowel sounds - Integumentary Integumentary: Present: clear, warm - Psychiatric Psychiatric: appropriate mood/affect, cooperative - Neurologic Neurologic: CNII-XII intact, moves all extremities Results - Labs CBC & Chem 7: 03/04/17 07:12 03/04/17 07:12 Labs: Laboratory Last Values WBC 13.2 K/mm3 (4.5-11.0) H 03/04/17 07:12 RBC 4.06 M/mm3 (3.65-5.03) 03/04/17 07:12 Hgb 11.8 gm/dl (10.1-14.3) 03/04/17 07:12 Hct 36.4 % (30.3-42.9) 03/04/17 07:12 MCV 90 fl (79-97) 03/04/17 07:12 MCH 29 pg (28-32) 03/04/17 07:12 MCHC 32 % (30-34) 03/04/17 07:12 RDW 14.7 % (13.2-15.2) 03/04/17 07:12 Plt Count 169 K/mm3 (140-440) 03/04/17 07:12 Lymph % (Auto) 20.6 % (13.4-35.0) 03/04/17 07:12 [place] % (Auto) 3.3 % (0.0-7.3) 03/04/17 07:12 Eos % (Auto) 0.4 % (0.0-4.3) 03/04/17 07:12 Baso % (Auto) 0.3 % (0.0-1.8) 03/04/17 07:12 Lymph # 2.7 K/mm3 (1.2-5.4) 03/04/17 07:12 [place] # 0.4 K/mm3 (0.0-0.8) 03/04/17 07:12 Eos # 0.1 K/mm3 (0.0-0.4) 03/04/17 07:12 Baso # 0.0 K/mm3 (0.0-0.1) 03/04/17 07:12 Add Manual Diff Complete 03/03/17 05:24 Total Counted 100 03/03/17 05:24 Seg Neutrophils % 75.4 % (40.0-70.0) H 03/04/17 07:12 Seg Neuts % (Manual) 91.0 % (40.0-70.0) H 03/03/17 05:24 Band Neutrophils % 4.0 % 03/03/17 05:24 Lymphocytes % (Manual) 3.0 % (13.4-35.0) L 03/03/17 05:24 Reactive Lymphs % (Man) 0 % 03/03/17 05:24 Monocytes % (Manual) 2.0 % (0.0-7.3) 03/03/17 05:24 Eosinophils % (Manual) 0 % (0.0-4.3) 03/03/17 05:24 Basophils % (Manual) 0 % (0.0-1.8) 03/03/17 05:24 Metamyelocytes % 0 % 03/03/17 05:24 Myelocytes % 0 % 03/03/17 05:24 Promyelocytes % 0 % 03/03/17 05:24 Blast Cells % 0 % 03/03/17 05:24 Nucleated RBC % Not Reportable 03/03/17 05:24 Seg Neutrophils # 9.9 K/mm3 (1.8-7.7) H 03/04/17 07:12 Seg Neutrophils # Man 19.7 K/mm3 (1.8-7.7) H 03/03/17 05:24 Band Neutrophils # 0.9 K/mm3 03/03/17 05:24 Lymphocytes # (Manual) 0.7 K/mm3 (1.2-5.4) L 03/03/17 05:24 Abs React Lymphs (Man) 0.0 K/mm3 03/03/17 05:24 Monocytes # (Manual) 0.4 K/mm3 (0.0-0.8) 03/03/17 05:24 Eosinophils # (Manual) 0.0 K/mm3 (0.0-0.4) 03/03/17 05:24 Basophils # (Manual) 0.0 K/mm3 (0.0-0.1) 03/03/17 05:24 Metamyelocytes # 0.0 K/mm3 03/03/17 05:24 Myelocytes # 0.0 K/mm3 03/03/17 05:24 Promyelocytes # 0.0 K/mm3 03/03/17 05:24 Blast Cells # 0.0 K/mm3 03/03/17 05:24 WBC Morphology Not Reportable 03/03/17 05:24 Hypersegmented Neuts Not Reportable 03/03/17 05:24 Hyposegmented Neuts Not Reportable 03/03/17 05:24 Hypogranular Neuts Not Reportable 03/03/17 05:24 Smudge Cells Not Reportable 03/03/17 05:24 Toxic Granulation Not Reportable 03/03/17 05:24 Toxic Vacuolation Not Reportable 03/03/17 05:24 Dohle Bodies Not Reportable 03/03/17 05:24 Pelger-Huet Anomaly Not Reportable 03/03/17 05:24 Chad Rods Not Reportable 03/03/17 05:24 Platelet Estimate Consistent w auto 03/03/17 05:24 Clumped Platelets Not Reportable 03/03/17 05:24 Plt Clumps, EDTA Not Reportable 03/03/17 05:24 Large Platelets Not Reportable 03/03/17 05:24 Giant Platelets Not Reportable 03/03/17 05:24 Platelet Satelliting Not Reportable 03/03/17 05:24 Plt Morphology Comment Not Reportable 03/03/17 05:24 RBC Morphology Not Reportable 03/03/17 05:24 Dimorphic RBCs Not Reportable 03/03/17 05:24 Polychromasia Not Reportable 03/03/17 05:24 Hypochromasia Not Reportable 03/03/17 05:24 Poikilocytosis Not Reportable 03/03/17 05:24 Anisocytosis 1+ 03/03/17 05:24 Microcytosis Not Reportable 03/03/17 05:24 Macrocytosis Not Reportable 03/03/17 05:24 Spherocytes Not Reportable 03/03/17 05:24 Pappenheimer Bodies Not Reportable 03/03/17 05:24 Sickle Cells Not Reportable 03/03/17 05:24 Target Cells Not Reportable 03/03/17 05:24 Tear Drop Cells Not Reportable 03/03/17 05:24 Ovalocytes Not Reportable 03/03/17 05:24 Helmet Cells Not Reportable 03/03/17 05:24 Chakraborty-Hanska Bodies Not Reportable 03/03/17 05:24 [place] Rings Not Reportable 03/03/17 05:24 [place] Cells Not Reportable 03/03/17 05:24 Bite Cells Not Reportable 03/03/17 05:24 Crenated Cell Not Reportable 03/03/17 05:24 Elliptocytes Not Reportable 03/03/17 05:24 Acanthocytes (Spur) Not Reportable 03/03/17 05:24 Rouleaux Not Reportable 03/03/17 05:24 Hemoglobin C Crystals Not Reportable 03/03/17 05:24 Schistocytes Not Reportable 03/03/17 05:24 Malaria parasites Not Reportable 03/03/17 05:24 Enoc Bodies Not Reportable 03/03/17 05:24 Hem Pathologist Commnt No 03/03/17 05:24 PT 15.4 Sec. (12.2-14.9) H 03/01/17 16:44 INR 1.16 (0.87-1.13) H 03/01/17 16:44 APTT 31.8 Sec. (24.2-36.6) 03/01/17 16:44 POC ABG pH 7.285 (7.35-7.45) L 03/03/17 05:22 POC ABG pCO2 32.3 (35-45) L 03/03/17 05:22 POC ABG pO2 63 (80-105) L 03/03/17 05:22 POC ABG HCO3 15.3 03/03/17 05:22 POC ABG Total CO2 16 03/03/17 05:22 POC ABG O2 Sat 89 03/03/17 05:22 POC ABG Base Excess -11 03/03/17 05:22 FiO2 21 % 03/03/17 05:22 Sodium 140 mmol/L (137-145) 03/04/17 07:12 Potassium 3.6 mmol/L (3.6-5.0) D 03/04/17 07:12 Chloride 107.0 mmol/L (98-107) 03/04/17 07:12 Carbon Dioxide 20 mmol/L (22-30) L 03/04/17 07:12 Anion Gap 17 mmol/L 03/04/17 07:12 BUN 15 mg/dL (7-17) 03/04/17 07:12 Creatinine 0.8 mg/dL (0.7-1.2) 03/04/17 07:12 Estimated GFR > 60 ml/min 03/04/17 07:12 BUN/Creatinine Ratio 18.75 % 03/04/17 07:12 Glucose 374 mg/dL (65-100) H 03/04/17 07:12 POC Glucose > 500 (70-105) H 03/05/17 11:37 Hemoglobin A1c 13.0 % (4-6) H 03/01/17 16:44 Lactic Acid 3.00 mmol/L (0.7-2.0) H* 03/01/17 18:40 Calcium 8.0 mg/dL (8.4-10.2) L 03/04/17 07:12 Phosphorus 2.40 mg/dL (2.5-4.5) L D 03/04/17 07:12 Magnesium 1.90 mg/dL (1.7-2.3) 03/04/17 07:12 Total Bilirubin 0.30 mg/dL (0.1-1.2) 03/04/17 07:12 Direct Bilirubin < 0.2 mg/dL (0-0.2) 03/04/17 07:12 Indirect Bilirubin 0.1 mg/dL 03/04/17 07:12 AST 17 units/L (5-40) 03/04/17 07:12 ALT 16 units/L (7-56) 03/04/17 07:12 Alkaline Phosphatase 114 units/L (35-129) 03/04/17 07:12 Ammonia 36.0 umol/L (25-60) 03/04/17 07:12 Lactate Dehydrogenase 263 units/L (91-180) H 03/01/17 16:44 Total Creatine Kinase 47 units/L (30-135) 03/01/17 16:44 Troponin T < 0.010 ng/mL (0.00-0.029) 03/01/17 16:44 Total Protein 5.4 g/dL (6.3-8.2) L D 03/04/17 07:12 Albumin 2.8 g/dL (3.9-5) L 03/04/17 07:12 Albumin/Globulin Ratio 1.1 % 03/04/17 07:12 TSH 1.510 mlU/mL (0.270-4.200) 03/01/17 16:44 Urine Color Yellow (Yellow) 03/01/17 17:18 Urine Turbidity Clear (Clear) 03/01/17 17:18 Urine pH 5.0 (5.0-7.0) 03/01/17 17:18 Ur Specific [place] 1.023 (1.003-1.030) 03/01/17 17:18 Urine Protein 100 mg/dl mg/dL (Negative) 03/01/17 17:18 Urine Glucose (UA) >=500 mg/dL (Negative) 03/01/17 17:18 Urine Ketones 80 mg/dL (Negative) 03/01/17 17:18 Urine Blood Sm (Negative) 03/01/17 17:18 Urine Nitrite Neg (Negative) 03/01/17 17:18 Urine Bilirubin Neg (Negative) 03/01/17 17: Urine Urobilinogen < 2.0 mg/dL (<2.0) 03/01/17 17:18 Ur Leukocyte Esterase Neg (Negative) 03/01/17 17:18 Urine WBC (Auto) 1.0 /HPF (0.0-6.0) 03/01/17 17:18 Urine RBC (Auto) 1.0 /HPF (0.0-6.0) 03/01/17 17:18 Urine Bacteria (Auto) 1+ /HPF (Negative) 03/01/17 17: Urine Mucus Few /HPF 03/01/17 17:18 Urine HCG, Qual Negative (Negative) 03/01/17 17:18 Salicylates 0.6 mg/dL (2.8-20.0) L 03/01/17 16:44 Urine Opiates Screen Presumptive negative 03/01/17 17:18 Urine Methadone Screen Presumptive negative 03/01/17 17:18 Acetaminophen < 15.0 ug/mL (10.0-30.0) 03/01/17 16:44 Ur Barbiturates Screen Presumptive negative 03/01/17 17:18 Ur Phencyclidine Scrn Presumptive negative 03/01/17 17:18 Ur Amphetamines Screen Presumptive positive 03/01/17 17:18 U Benzodiazepines Scrn Presumptive negative 03/01/17 17:18 Urine Cocaine Screen Presumptive negative 03/01/17 17:18 U Marijuana (THC) Screen Presumptive negative 03/01/17 17:18 Drugs of Abuse Note Disclamer 03/01/17 17:18 Plasma/Serum Alcohol < 0.01 gm% (0-0.07) 03/01/17 16:44
--- NOTE | 2017-03-05 18:30 | Discharge Summary ---
Providers - Providers Date of Admission: 03/01/17 17:16 Date of discharge: 03/05/17 Attending physician: LAM GEIGER Primary care physician: STICKER MACHINE OPERATOR Hospitalization Reason for admission: diabetic ketoacidosis Condition: Fair Hospital course: Patient was admitted with severe diabetic ketoacidosis and unresponsiveness, admitted to ICU, managed with IV insulin drip, IV fluids, empiric antibiotics and supportive care Diagnosis: --Uncontrolled diabetes mellitus Sugars running more than 500s, secondary to patient's noncompliance Patient has plenty of outside food in her room Strongly advised to comply with diet and medications Will hold the discharge, increase 70/30 insulin dose --Diabetic ketoacidosis; corrected, blood sugars uncontrolled Hemoglobin A1c is 13, diabetic education and nutrition consult --1 diabetes mellitus; uncontrolled, increase 7030 insulin to 24 units twice a day Accu-Chek sliding scale coverage with high-dose, ADA diet --Metabolic encephalopathy, improved patient is alert awake oriented 3 and cooperative --Acute renal failure, vasomotor nephropathy, prerenal azotemia Resolved continue IV hydration, closely monitor renal function, avoid nephrotoxic medications -- amphetamine abuse; counseling done, advised to quit recreational drug use patient verbalized understanding --Lactic acidosis; corrected ,evaluation for sepsis, on Empiric antibiotics, but discontinued --Hypokalemia; corrected, closely monitor electrolytes --Leukocytosis; rule out sepsis, empiric antibiotics, follow cultures Hypoxia secondary to stress and severe dehydration --Hyperammonemia, corrected Issues blood sugars today were uncontrolled secondary to noncompliance with diet , patient eats outside food, sugars were uncontrolled ranging between 400s and 500s, patient's insulin was adjusted, diabetic education and diabetic counseling was done However patient refused to stay in the hospital, left AGAINST MEDICAL ADVICE Risks and consequences of leaving the hospital AMA with uncontrolled blood sugars was explained to the patient, she verbalized understanding, left AMA Disposition: [id number] LEFT AGAINST MED ADVICE Time spent for discharge: 32 min Core Measure Documentation - Palliative Care Palliative Care/ Comfort Measures: Not Applicable - Core Measures Any of the following diagnoses?: none Exam - Constitutional Vitals: Temp Pulse Resp BP Pulse Ox 98.4 F 85 84 H 122/80 98 03/05/17 08:00 03/04/17 23:00 03/05/17 08:00 03/05/17 08:00 03/05/17 08:00 General appearance: Present: no acute distress, cachectic - EENT Eyes: Present: PERRL, EOM intact - Neck Neck: Present: supple, normal ROM - Respiratory Respiratory effort: normal Respiratory: negative: rales, rhonchi, wheezing - Cardiovascular Rhythm: regular Heart Sounds: Present: S1 & S2 - Extremities Extremities: no ischemia, No edema - Abdominal General gastrointestinal: Present: soft, non-tender, non-distended, normal bowel sounds - Integumentary Integumentary: Present: clear, warm - Musculoskeletal Musculoskeletal: strength equal bilaterally - Psychiatric Psychiatric: appropriate mood/affect, cooperative - Neurologic Neurologic: CNII-XII intact, moves all extremities Plan Activity: no restrictions Diet: diabetic Additional Instructions: Left AGAINST MEDICAL ADVICE Follow up with: PRIMARY CARE, [Primary Care Provider] - 3-5 Days DECLAN WEBSTER MD [Staff Physician] - 7 Days Prescriptions: Insulin NPH/Regular [NovoLIN 70/30] 28 unit SQ BID 30 Days Insulin Regular, Human [HumuLIN R] 5 unit SQ ACHS 30 Days Other Discharge Orders: Glucometer (Amb) Location: Determined By Patient Glucometer supplies[Amb] Location: Determined By Patient
== END 2017-03-05 13:55 | disposition home health service (06) | DRG 871 ==
LOC: EDBD → ED 15:42 → CC1 17:16 → 3A 03-03 11:06
PROVIDERS: ADMIT Internal Medicine; ATTEND Internal Medicine
PROC: 4A033R1 Measurement of Arterial Saturation, Peripheral, Percutaneous Approach (ICD-10-PCS; principal; 2017-03-01)
DX: A40.1 Sepsis due to streptococcus, group B (principal); G92 Toxic encephalopathy; N17.0 Acute kidney failure with tubular necrosis; E13.11 Other specified diabetes mellitus with ketoacidosis with coma; Z53.21 Procedure and treatment not carried out due to patient leaving prior to being seen by health care provider; E87.6 Hypokalemia; K72.90 Hepatic failure, unspecified without coma; F15.10 Other stimulant abuse, uncomplicated; E86.0 Dehydration; Z82.49 Family history of ischemic heart disease and other diseases of the circulatory system; Z91.19 Patient's noncompliance with other medical treatment and regimen
CPT/HCPCS: 36415; 36600; 70450; 71010; 80048; 80053; 80074; 80307; 80320; 81001; 81025; 82140; 82550; 82803; 82962; 83036; 83615; 83735; 84100; 84443; 84484; 85007; 85025; 85610; 85730; 87040; 87086; 93005; 93010; 94760; 96365; G0480; J1650; J1815; J2543; J3370; J3475; J3480; J7030; J7040; J7050